=== PATIENT | male | born 1955 | race Hispanic/Latino ===

== ENCOUNTER → 2016-05-17 | Outpatient (CLI) | payer OTHER, MEDICARE ==
[~2016-05-17] MED LIST: /DULO30CA PO; /LANS30GR PO; /TAMS4CA OR; ACET50TA PO; ALBU17IN INH; AMBI5TAB; AMLO5TAB; AMLO5TAB PO; AMLO5TAB2 PO; ASPI1TAB PO; ASPI81TA63 PO; AVAP150T; BENI20TA5 PO; BUPR15TA; CARV25TA PO; CEPACOL PO; CHLO125TA PO; CHLO25TA3 PO; CIAL20TA; COZA100T; COZA100T OR; CRES20TA OR; CRES20TA PO; CRES40TA PO; DRIS50002 PO; FLOM5CAP PO; FLON0.05; FLON0.054; FLUTISP; GABA300T; GABA600T PO; GABA600T3 OR; GLUC1000 PO; GLUC500T PO; HYDR-3565 PO; HYDR200T3 PO; HYDR25TA6; HYDR25TA6 OR; HYPROMELLOSE OU; LACT20EL PO; LOVAZA PO; LOVE0.8I SC; LYRI150C OR; MIRA0.753 PO; Mirapex PO; NATUSOL OU; NITR0.3S SL; NITR3TA SL; OXYC30TA4 PO; OXYC5CAP28 PO; OXYCO5TA PO; PERC10TA17 PO; PERC7.5T12 PO; PLAV75TA2 PO; POTA1TAB14 PO; POTA20TA OR; PREV30CA11 PO; Pain Cream TOP; QUAR INH; QVAR80AE7 INH; REFR1DRO6 OU; REQU2TAB3 OR; RYZOLT PO; TAMS0.4C2 PO; THERGRAN PO; TIZA4TAB OR; TOPA100T8 PO; TOPA25TA10 PO; TOPI50TA4 PO; TOPR100T; TOPR50TA; TRAM50TA2 OR; TRIL135C PO; Trilipix PO; VICO10TA11 PO; VICO5TA PO; VICO5TAB OR; VITAMIN D50000 UNT PO; VOLT1GEL2 TD; VYTO10TA5; Ventolin INH; XANA0.5T PO; XARE20TA PO; ZETI10TA2 PO; ZOLO100T PO; ZOLO50TA OR; [UNRECOGNIZED DRUG - OTHER]; plaquenil PO; tylenol#3 PO
[2016-05-17 17:30] LABS: MEAN CORPUSCULAR HEMOGLOBIN 29.7 pg (27.0-33.0); RED CELL DISTRIBUTION WIDTH 13.7 % (11.5-14.5); RETIC HEMOGLOBIN CONTENT CHr 31.3 PG (24-36); RETICULOCYTE % ADVIA2120 2.7 % (0.5-1.5); WHITE BLOOD COUNT 5.9 K/mm3 (4.0-10.0)
[2016-05-17 17:34] LABS: FOLATE 10.6 NG/ML (>5.4); VITAMIN B12 LEVEL 476 PG/ML (247-911)
[2016-05-17 17:37] LABS: ALBUMIN 4.1 GM/DL (3.2-5.2); ALBUMIN/GLOBULIN RATIO 1.24 (1.00-1.93); ALKALINE PHOSPHATASE 67 U/L (45-117); ALT/SGPT 45 U/L (12-78); ANION GAP 10 MEQ/L (8-16); AST/SGOT 21 U/L (15-37); BILIRUBIN,DIRECT 0.1 MG/DL (0.0-0.2); BILIRUBIN,TOTAL 0.3 MG/DL (0.2-1.0); BLOOD UREA NITROGEN 28 MG/DL (7-18); CALCIUM LEVEL 9.4 MG/DL (8.8-10.2); CARBON DIOXIDE LEVEL 26 MEQ/L (21-32); CHLORIDE LEVEL 109 MEQ/L (98-107); CHOLESTEROL LEVEL 166 MG/DL (<200); CREATININE FOR GFR 1.18 MG/DL (0.70-1.30); FERRITIN 81 NG/ML (26-388); GLOMERULAR FILTRATION RATE > 60.0 (>49); GLUCOSE, FASTING 116 MG/DL (80-110); PERCENT SATURATION 28.8 % (19.7-37.4); POTASSIUM SERUM 3.6 MEQ/L (3.5-5.1); SODIUM LEVEL 145 MEQ/L (136-145); TOTAL IRON BINDING CAPACITY 351 UG/DL (250-450); TOTAL PROTEIN 7.4 GM/DL (6.4-8.2); TRIGLYCERIDES LEVEL 196 MG/DL (<150)
== END ==
LOC: M LRY 10:27
PROVIDERS: ATTEND Family Medicine
DX: E78.4 Other hyperlipidemia (principal); N18.3 Chronic kidney disease, stage 3 (moderate); E55.9 Vitamin D deficiency, unspecified; D64.9 Anemia, unspecified

== ENCOUNTER → 2016-06-03 | Outpatient (CLI) | payer OTHER ==
[~2016-06-03] MED LIST changes: -HYDR-3565 PO; +HYDR-3719 PO; +OXYC-517 PO; -OXYCO5TA PO
== END ==
LOC: M SMT 10:44
PROVIDERS: ATTEND Urology
DX: D40.0 Neoplasm of uncertain behavior of prostate (principal)
CPT/HCPCS: 36415; 84153; G0463

== ENCOUNTER → 2016-06-15 | Outpatient (CLI) | payer OTHER ==
--- NOTE | 2016-06-15 11:02 | REP ---
Prostate sonography: History: Elevated PSA. Sonographic findings: Trans rectal prostate sonography demonstrates unremarkable seminal vesicles. Prostate gland is heterogeneously enlarged with calcifications and cystic changes noted. Glandular dimensions are measured at 5.3 x 4.3 x 5.4 cm with a calculated glandular volume of 64.4 ml. There is a 0.8 cm nodule in the left side of the prostate . Transrectal sonographic guidance provided to Dr. Slade who performed trans rectal ultrasound guided needle biopsy procedure . Signed by Kevin Bolaños MD 06/15/2016 10:53 A
== END | disposition home or self-care (01) ==
LOC: M SMT PRO 08:25
PROVIDERS: ATTEND Urology
DX: C61 Malignant neoplasm of prostate (principal); R97.20 Elevated prostate specific antigen [PSA]
CPT/HCPCS: 55700; 76872; 76942; G0416

== ENCOUNTER → 2016-06-17 | Outpatient (CLI) | payer OTHER, MEDICARE | LOC: M PAIN 09:40 | PROVIDERS: ATTEND Nurse Practitioner Family | DX: Z09 Encounter for follow-up examination after completed treatment for conditions other than malignant neoplasm (principal); G89.29 Other chronic pain; M46.08 Spinal enthesopathy, sacral and sacrococcygeal region; M12.88 Other specific arthropathies, not elsewhere classified, other specified site; I10 Essential (primary) hypertension; G47.30 Sleep apnea, unspecified; I25.10 Atherosclerotic heart disease of native coronary artery without angina pectoris; E78.5 Hyperlipidemia, unspecified; K30 Functional dyspepsia; F32.9 Major depressive disorder, single episode, unspecified; E55.9 Vitamin D deficiency, unspecified; D68.61 Antiphospholipid syndrome; Z88.1 Allergy status to other antibiotic agents; Z88.8 Allergy status to other drugs, medicaments and biological substances; Z79.01 Long term (current) use of anticoagulants; Z79.82 Long term (current) use of aspirin; Z79.84 Long term (current) use of oral hypoglycemic drugs; Z79.891 Long term (current) use of opiate analgesic; Z79.899 Other long term (current) drug therapy ==

== ENCOUNTER → 2016-07-02 | Outpatient (REF) | payer OTHER, MEDICARE | LOC: M LABNEURO 13:08 | PROVIDERS: ATTEND Family Medicine | DX: E55.9 Vitamin D deficiency, unspecified (principal) ==

== ENCOUNTER → 2016-07-09 | Outpatient (CLI) | payer OTHER, MEDICARE ==
[~2016-07-09] MED LIST changes: +BENI40TA3 PO; +BUPIVACAINE HCL 0.25% 30 ML VIAL As Ordered ONE; +FLON1SPR; +FLUT11IN INH; +ISOVUE-M 300 61% 15ML VIAL (Q9967) As Ordered ONE; +LIDOCAINE 1% SDV INJ 30 ML VIAL As Ordered ONE; +LOVA1CAP17 PO; +PROA1AER INH; +TRIAMCINOLONE ACETONIDE SUSP 40 MG/ML VIAL (J3301) As Ordered ONE; +[UNRECOGNIZED DRUG - CODE] OU; +diazePAM 5 MG TAB As Ordered ONE; +oxyCODONE 5MG TAB As Ordered ONE
--- NOTE | 2016-07-09 15:04 | REP ---
Partial sacral coccygeal study: Three views. History: Bilateral sacral coccygeal ligament injection for pain. 24 seconds of fluoroscopy time is reported. Findings: A sequence of three fluoroscopically obtained last image hold spot radiographs document needle position and contrast injection associated with injection procedure. Signed by Kevin Bolaños MD 07/09/2016 04:47 P
--- NOTE | 2016-07-15 00:47 | ECWPNPC ---
PATIENT NAME: DALTON WYNN : 1955 GENDER: MALE VISIT DATE: 07/09/2016 DISCHARGE DATE: 07/09/16 1404 VISIT LOCKED DATE TIME: PHYSICIAN: PRO HIGGINS RESOURCE: PRO HIGGINS REASON FOR APPOINTMENT 1. SACRAL COCCYGEAL LIGAMENT INJECTION HISTORY OF PRESENT ILLNESS HISTORY OF PRESENT ILLNESS: PAIN THE PATIENT DESCRIBES THE PAIN... FALL RISK SCREENING: SCREENING :NO FALLS IN THE PAST YEAR CURRENT MEDICATIONS TAKING OXYCODONE HCL 5 MG TABLET 1 TABLET ORALLY Q10H PRN FOR PAIN MDD2, NOTES: 07-08-162099 TAKING ASPIR-81 81 MG TABLET DELAYED RELEASE 1 TABLET ORALLY ONCE A DAY, NOTES: 07-08-16 AM TAKING CHLORTHALIDONE 12.5 12.5MG TABLET 1TAB ORAL DAILY, NOTES: 07-09-16699 TAKING CRESTOR 40 MG TABLET 1 TABLET ORALLY ONCE A DAY, NOTES: 07-08-162099 TAKING FLONASE 50 MCG/ACT SUSPENSION 2 SPRAYS IN EACH NOSTRIL NASALLY ONCE A DAY, NOTES: 2 DAYS TAKING GABAPENTIN 600 MG TABLET 1 TABLET ORALLY THREE TIMES A DAY, NOTES: 07-09-16699 TAKING GLUCOPHAGE 500 MG TABLET 1 TABLET WITH MEALS ORALLY ONCE A DAY, NOTES: 07-08-16 AM TAKING KLOR-CON M20 20 MEQ TABLET EXTENDED RELEASE 1 TABLET ORALLY DAILY, NOTES: 07-08-16 TAKING MIRAPEX 0.75 MG TABLET 1 TABLET BEFORE BEDTIME ORALLY BID, NOTES: 07-08-161799 TAKING NITROGLYCERIN 0.3 MG TABLET SUBLINGUAL 1 TABLET UNDER THE TONGUE AND ALLOW TO DISSOLVE NEEDED SUBLINGUAL EVERY 0 HRS, NOTES: NONE NEEDED TAKING PREVACID 30 MG CAPSULE DELAYED RELEASE 1 CAPSULE BEFORE A MEAL ORALLY BID, NOTES: 07-08-16699 TAKING VITAMIN D2 58409 UNITS TABLET 1TAB ORALLY EVERY 2 WEEKS, NOTES: WEEK AGO TAKING FLOMAX 0.4 MG CAPSULE 1 CAPSULE 30 MINUTES AFTER THE SAME MEAL EACH DAY ORALLY ONCE A DAY, NOTES: 07-08-161199 TAKING BENICAR 40 MG TABLET 1 TAB ORALLY ONCE DAILY, NOTES: 07-08-162099 TAKING TOPAMAX 100 MG TABLET 1 TABLET ORALLY TWICE A DAY, NOTES: 699 TAKING HYPROMELLOSE 0.4 % SOLUTION 1 DROP INTO AFFECTED EYE NEEDED OPHTHALMIC ONCE A DAY, NOTES: COUPLE DAYS TAKING XARELTO 20 MG TABLET 1 TABLET WITH FOOD ORALLY ONCE DAILY, NOTES: 06-25-16 TAKING ZETIA 10 MG TABLET 1 TABLET ORALLY ONCE A DAY, NOTES: 07-08-162099 TAKING PROAIR HFA 108 (90 BASE) MCG/ACT AEROSOL SOLUTION 2 PUFFS NEEDED INHALATION EVERY 4 HRS, NOTES: 07-09-16699 TAKING FLOVENT HFA 110 MCG/ACT AEROSOL 2 PUFFS INHALATION TWICE A DAY, NOTES: COUPLE DAYS TAKING SERTRALINE HCL 100 MG TABLET 1 TABLET ORALLY ONCE A DAY, NOTES: 07-08-16699 TAKING COREG 25 MG TABLET ORALLY TWICE DAILY, NOTES: 07-08-16699 TAKING LOVENOX 40 MG/0.4ML SOLUTION 0.4 ML SUBCUTANEOUS ONCE A DAY BRIDGE, NOTES: 07-08-16899 TAKING LIDOCAINE 5% (140 MG) PATCH EXTERNALLY TWICE DAILY NEEDED, NOTES: NONE TAKING LOVAZA 1 GM CAPSULE 1 CAP ORALLY TWICE A DAY, NOTES: 07-08-162099 DISCONTINUED CIPROFLOXACIN HCL 500 MG TABLET 1 TABLET (START TAKING THE EVENING PRIOR TO YOUR PROSTATE BIOPSY) ORALLY EVERY 12 HRS DISCONTINUED TRILIPIX 200 MG CAPSULE DELAYED RELEASE 1 CAPSULE ORALLY ONCE A DAY DISCONTINUED IRON 325 (65 FE) MG TABLET 1 TABLET ORALLY BID DISCONTINUED LANSOPRAZOLE 30 MG CAPSULE DELAYED RELEASE 1 CAPSULE ORALLY ONCE A DAY DISCONTINUED METFORMIN HCL 500 MG TABLET 1 TABLET WITH MEALS ORALLY ONCE A DAY DISCONTINUED FISH OIL 1000 MG CAPSULE 2 CAPSULES ORALLY ONCE A DAY DISCONTINUED VITAMIN C 500 MG TABLET CHEWABLE 1 TABLET ORALLY ONCE A DAY MEDICATION LIST REVIEWED AND RECONCILED WITH THE PATIENT PAST MEDICAL HISTORY HYPERTENSION SLEEP APNEA CAD HYPERLIPIDEMIA ARTHRALGIA DIVERTICULOSIS ERECTILE DYSFUNCTION DIABETIC NEUROPATHY DYSPEPSIA DIABETES MELLITUS DEPRESSION BPH ESOPHAGEAL REFLUX VITAMIN D DEFICIENCY WHEEZING ANTIPHOSPHOLID ANTIBODY SYNDROME ALLERGIES ERYTHROMYCIN: HIVES: ALLERGY ALTACE: COUGH: SIDE EFFECTS ABILIFY: SEVERE HEADACHES: SIDE EFFECTS NEXIUM: NAUSEA/VOMITING: CONTRAINDICATION OXYTETRACYCLINE HCL: MOUTH SORES: ALLERGY SOCIAL HISTORY GENERAL: TOBACCO USE ARE YOU A:NONSMOKER LEARNING BARRIERS / SPECIAL NEEDS ORIENTED TO PLAN OF CARE: PATIENT, PAIN MANAGEMENT PATIENT, ORIENTED TO PLAN OF CARE: PATIENT, PAIN MANAGEMENT PATIENT. NEW PATIENT PAIN DIARY TODAY'S VISITNOTES FROM 0-10, WHAT LEVEL IS YOUR PAIN TODAY?0 PAIN CLINIC PFS, CLERGY, PUBLIC HEALTH REFERRALS PFS REFERRAL NEEDED?NO CLERGY REFERRAL NEEDED?NO PUBLIC HEALTH REFERRAL NEEDED?NO WAS THE PROVIDER NOTIFIED OF ANY PERTINENT INFO?NO PFS REFERRAL NEEDED?NO CLERGY REFERRAL NEEDED?NO PUBLIC HEALTH REFERRAL NEEDED?NO WAS THE PROVIDER NOTIFIED OF ANY PERTINENT INFO?NO REVIEW OF SYSTEMS CONSTITUTIONAL: ANY CHANGE IN YOUR MEDICAL CONDITION? YES, PROTATE CANCER . CHILLS NO . FEVER NO . INFECTION: DO YOU HAVE NEW INFECTIONS? NO . DO YOU HAVE HISTORY OF MRSA? NO . MUSCULOSKELETAL: ANY NEW PATTERNS OF PAIN OR NUMBNESS? YES, LOWER BACK HURTING MUCH MORE. . GASTROENTEROLOGY: ANY NEW CHANGE IN BOWEL CONTROL? NO . GENITOURINARY: ANY NEW CHANGE IN BLADDER CONTROL? NO . IS THERE A CHANCE YOU COULD BE ? NO . HEMATOLOGY/LYMPH: DO YOU TAKE ANY BLOOD THINNERS? (FOR EXAMPLE- COUMADIN, PLAVIX, AGGRENOX, PLATEL, PRADAXA, OR XARELTO) YES, XARELTO . WHEN WAS YOUR LAST DOSE? DATE: TIME: 07-05-16699 . NEUROLOGY: HAVE YOU FALLEN IN THE PAST 6 MONTHS? NO . ANY NEW EXTREMITY NUMBNESS OR WEAKNESS? NO . CARDIOLOGY: DO YOU HAVE A PACEMAKER OR DEFIBRILLATOR? NO . RESPIRATORY: HAVE YOU BEEN SICK IN THE PAST WEEK? NO . FEVER NO . FLU LIKE SYMPTOMS? NO . COUGH NO . INTEGUMENTARY: DO YOU HAVE ANY RASHES OR OPEN SORES? NO . ALLERGIC/IMMUNO: ARE YOU ALLERGIC TO SHELLFISH OR IV DYE? NO . ANY NEW ALLERGIES? NO . PSYCHIATRIC: DO YOU HAVE THOUGHTS OF HURTING YOURSELF OR SOMEONE ELSE? NO . ARE YOU ABUSED, NEGLECTED, OR IN AN UNSAFE ENVIRONMENT? NO . ENDOCRINOLOGY: ARE YOU DIABETIC? YES . OTHER: DO YOU NEED ANY PRESCRIPTIONS? NO . IF YES, PLEASE LIST: ____ . ANY NEW PROBLEMS WITH YOUR MEDICATIONS? NO . WHEN DID YOU LAST EAT? 07-08-162199 . WHEN DID YOU LAST DRINK? 07-09-16 0700 . WHAT DID YOU LAST DRINK? WATER . NAME OF PERSON DRIVING YOU HOME? GUY . DO YOU HAVE ANY OTHER QUESTIONS OR CONCERNS NO . REVIEWED BY: PROVIDER: . VITAL SIGNS WT 220 LBS, HT 68 IN, BMI 33.45 INDEX, BP 122/59 MM HG, HR 68 /MIN, RR 16 /MIN, TEMP 96.7 F, OXYGEN SAT % 92%, NA INITIALS SC 11:12, REVIEWED BY: CM. ASSESSMENTS SPINAL ENTHESOPATHY, SACRAL AND SACROCOCCYGEAL REGION - M46.08 (PRIMARY) PROCEDURES PREPROCEDURE DIAGNOSIS:INFLAMMATION OF THE SACROCOCCYGEAL LIGAMENT. COCCYDYNIA.POSTPROCEDURE DIAGNOSIS:INFLAMMATION OF THE SACROCOCCYGEAL LIGAMENT. COCCYDYNIA.PROCEDURE: INJECTION OF THE RIGHT AND LEFT SACROCOCCYGEAL LIGAMENT. SURGEON: DR. PRO HIGGINS-[facility]ENTERANESTHESIA: LOCAL.PREOPERATIVE NOTE: THE PATIENT HAS HISTORY OF LOW BACK PAIN. I EVALUATED THE PATIENT AND REVIEWED THE CHART. WE BOTH AGREE ON INJECTING OVER THE SACROCOCCYGEAL LIGAMENT. THE PATIENT IS AWARE OF THE POTENTIAL COMPLICATIONS WHICH INCLUDE INFECTIONS, VISCERAL PUNCTURE, INCLUDING RECTAL PUNCTURE AMONG OTHERS. I DISCUSSED ALTERNATIVES AND THE PATIENT EXPRESSED THAT SHE WOULD LIKE TO MOVE FORWARD. THE PATIENT DENIES UNEXPLAINABLE, WEIGHT LOSS, FEVER, CHILLS, OR CHANGES IN URINARY OR BOWEL CONTROL. DESCRIPTION OF PROCEDURE: AFTER CONSENT WAS TAKEN, THE PATIENT WAS BROUGHT TO THE PROCEDURE ROOM AND PLACED IN THE PRONE POSITION. THE LUMBOSACRAL AREA WAS CLEANED WITH CHLORAPREP SOLUTION AND DRAPED ASEPTICALLY. THE PROCEDURE WAS DONE UNDER STERILE CONDITIONS. UNDER FLUOROSCOPIC GUIDANCE, THE TARGET WAS SELECTED AT THE RIGHT AND LEFT SACROCOCCYGEAL LIGAMENT. LIDOCAINE WAS USED TO NUMB THE SKIN AND THE SUBCUTANEOUS TISSUE BELOW IT. A 25 NEEDLE WAS ADVANCED UNTIL WE REACHED THE RIGHT AND LEFT SACROCOCCYGEAL LIGAMENT. I DID AP AND LATERAL VIEWS. ISOVUE M DYE 30%, 1/4 ML, WAS INJECTED SHOWING ADEQUATE SPREAD OF THE DYE. THEN A SOLUTION OF 30 ML OF BUPIVACAINE 0.125% WITH KENALOG 30 MG WAS INJECTED OVER THE AFFECTED STRUCTURE. THERE WAS NO EVIDENCE OF BLOOD, PARESTHESIA OR CEREBROSPINAL FLUID. NO EVIDENCE OF VACUUM PHENOMENON OR VISCERAL PUNCTURE. THE PATIENT WAS SENT TO THE RECOVERY ROOM WHERE SHE WAS MOVING HER EXTREMITIES AND DOING WELL. THERE WERE NO COMPLICATIONS DURING THE PROCEDURE. FLUOROSCOPY TIME WAS 12 SECONDS.POSTOPERATIVE NOTE: I DISCUSSED ALTERNATIVES WITH THE PATIENT. I AM LOOKING FOR LONG LASTING PAIN RELIEF WITH THIS INTERVENTION. INSTRUCTIONS WERE GIVEN. QUESTIONS WERE ANSWERED. THE PATIENT REPORTS UNDERSTANDING AND AGREES WITH THE PLAN. THERE WERE NO COMPLICATIONS DURING THE PROCEDURE. INSTRUCTIONS WERE GIVEN, QUESTIONS WERE ANSWERED, PATIENT REPORTS UNDERSTANDING AND AGREES WITH THE PLAN. I, MOISES NAVARRETE, DOCUMENTED THE ABOVE INFORMATION ACTING A SCRIBE FOR DR. HIGGINS. I HAVE REVIEWED THE ABOVE DOCUMENT, WRITTEN BY MOISES MUNOZ AND I VERIFY THAT IT IS ACCURATE. DIAGNOSTIC IMAGING [facility] FLUORO GUIDANCE (PAIN)[id number] PROCEDURE CODES 47467 INJ TENDON SHEATH/LIGAMENT 85022 FLUOROGUIDE FOR SPINE INJECT 6045F RADXPS IN END [id number] PXD DISPOSITION & COMMUNICATION FOLLOW UP 3 WEEKS ELECTRONICALLY SIGNED BY PRO HIGGINS MD ON 07/14/2016 AT 06:39 AM EST DISCLAIMER : THIS IS A VISIT SUMMARY EXTRACTED FROM THE [facility] CHART. IT IS NOT A COPY OF THE [facility] PROGRESS NOTE. IRASEMA
== END ==
LOC: M PAIN 11:10
PROVIDERS: ATTEND Anesthesiology
DX: G89.29 Other chronic pain (principal); M46.08 Spinal enthesopathy, sacral and sacrococcygeal region; M53.3 Sacrococcygeal disorders, not elsewhere classified; I10 Essential (primary) hypertension; G47.30 Sleep apnea, unspecified; I25.10 Atherosclerotic heart disease of native coronary artery without angina pectoris; E78.5 Hyperlipidemia, unspecified; E11.9 Type 2 diabetes mellitus without complications; K30 Functional dyspepsia; F32.9 Major depressive disorder, single episode, unspecified; K21.9 Gastro-esophageal reflux disease without esophagitis; E55.9 Vitamin D deficiency, unspecified; D68.61 Antiphospholipid syndrome; Z88.1 Allergy status to other antibiotic agents; Z88.8 Allergy status to other drugs, medicaments and biological substances; Z79.891 Long term (current) use of opiate analgesic; Z79.82 Long term (current) use of aspirin; Z79.84 Long term (current) use of oral hypoglycemic drugs; Z79.899 Other long term (current) drug therapy
CPT/HCPCS: 20550; 77002; J3301; Q9967

== ENCOUNTER → 2016-07-14 | Outpatient (REF) | payer OTHER, MEDICARE ==
[~2016-07-14] MED LIST changes: -BENI40TA3 PO; -BUPIVACAINE HCL 0.25% 30 ML VIAL As Ordered ONE; -FLON1SPR; -FLUT11IN INH; -ISOVUE-M 300 61% 15ML VIAL (Q9967) As Ordered ONE; -LIDOCAINE 1% SDV INJ 30 ML VIAL As Ordered ONE; -LOVA1CAP17 PO; -PROA1AER INH; -TRIAMCINOLONE ACETONIDE SUSP 40 MG/ML VIAL (J3301) As Ordered ONE; -[UNRECOGNIZED DRUG - CODE] OU; -diazePAM 5 MG TAB As Ordered ONE; -oxyCODONE 5MG TAB As Ordered ONE
== END ==
LOC: M SMT 16:54
PROVIDERS: ATTEND Urology
DX: Z01.812 Encounter for preprocedural laboratory examination (principal); C61 Malignant neoplasm of prostate

== ENCOUNTER → 2016-07-15 | Outpatient (CLI) | payer OTHER ==
[~2016-07-15] MED LIST changes: +BENI40TA3 PO; +FLON1SPR; +FLUT11IN INH; +LOVA1CAP17 PO; +PROA1AER INH; +[UNRECOGNIZED DRUG - CODE] OU
--- NOTE | 2016-07-15 09:47 | REP ---
CHEST, TWO VIEWS: HISTORY: Prostate cancer. COMPARISON: 03/24/2016. Calcified granuloma are present in the lungs. The heart is normal in size. The pulmonary vasculature is normal in appearance. The patient is status post resection of the distal right clavicle. IMPRESSION: Old granulomatous disease. Signed by Blas Ziegler MD 07/15/2016 10:16 A
[2016-07-15 13:32] LABS: MEAN CORPUSCULAR HEMOGLOBIN 29.3 pg (27.0-33.0); MEAN CORPUSCULAR VOLUME 88.9 fl (80.0-96.0); RED CELL DISTRIBUTION WIDTH 13.1 % (11.5-14.5); WHITE BLOOD COUNT 6.6 K/mm3 (4.0-10.0)
[2016-07-15 13:37] LABS: INR 1.16
[2016-07-15 14:04] LABS: ALBUMIN 3.9 GM/DL (3.2-5.2); ALBUMIN/GLOBULIN RATIO 1.22 (1.00-1.93); ALKALINE PHOSPHATASE 88 U/L (45-117); ALT/SGPT 38 U/L (12-78); ANION GAP 9 MEQ/L (8-16); AST/SGOT 19 U/L (15-37); BILIRUBIN,TOTAL 0.2 MG/DL (0.2-1.0); BLOOD UREA NITROGEN 25 MG/DL (7-18); CALCIUM LEVEL 9.5 MG/DL (8.8-10.2); CARBON DIOXIDE LEVEL 24 MEQ/L (21-32); CHLORIDE LEVEL 110 MEQ/L (98-107); GLOMERULAR FILTRATION RATE > 60.0 (>49); GLUCOSE, FASTING 164 MG/DL (80-110); POTASSIUM SERUM 3.9 MEQ/L (3.5-5.1); SODIUM LEVEL 143 MEQ/L (136-145); TOTAL PROTEIN 7.1 GM/DL (6.4-8.2)
== END ==
LOC: M SMT 08:31
PROVIDERS: ATTEND Urology
DX: C61 Malignant neoplasm of prostate (principal)

== ENCOUNTER 2016-07-23 06:00 | Inpatient (IN) | payer OTHER ==
[~2016-07-23] VITALS: Ht 172.7 cm; Wt 100.0 kg
[2016-07-23] MEDS ORDERED: LR 1,000 ML IV SCH ×2 (06:15→14:15)
[2016-07-23] MEDS ORDERED: METHYLENE BLUE 0.5% (5MG/ML) 10 ML AMP (PROVAYBLUE)(Q9968 PER 1MG) As Ordered ONE (06:46)
[2016-07-23] MEDS ORDERED: LIDOCAINE 1% SDV INJ 30 ML VIAL As Ordered ONE (06:47)
[2016-07-23] MEDS ORDERED: BUPIVACAINE HCL 0.25% 30 ML VIAL As Ordered ONE (06:47)
[2016-07-23] MEDS ORDERED: ACETAMINOPHEN TAB 650MG DOSE (2X325MG) PO PRN (07:45)
[2016-07-23] MEDS ORDERED: ALBUTEROL 90 MCG/ACT 8GM HFA INHALER INH PRN (07:45)
[2016-07-23] MEDS ORDERED: ONDANSETRON 4MG/2ML VIAL (J2405) IV PRN ×2 (07:45→14:15)
[2016-07-23] MEDS ORDERED: HEPARIN SOD (PORCINE) 5000 UNITS/ML VIAL As Ordered ONE (07:49)
[2016-07-23] MEDS ORDERED: ONDANSETRON 4MG/2ML VIAL (J2405) As Ordered ONE (08:07)
[2016-07-23] MEDS ORDERED: LIDOCAINE 2% INJ 100 MG/5 ML SDV (FOR ANES.) As Ordered ONE (08:07)
[2016-07-23] MEDS ORDERED: METOCLOPRAMIDE INJ 10MG/2ML VIAL (J2765) As Ordered ONE (08:07)
[2016-07-23] MEDS ORDERED: fentaNYL 250 MCG/5 ML INJECTION (J3010) As Ordered ONE (08:07)
[2016-07-23] MEDS ORDERED: GLYCOPYRROLATE INJ 0.2 MG/ML 2 ML VIAL As Ordered ONE ×3 (08:07→08:43)
[2016-07-23] MEDS ORDERED: PROPOFOL 200 MG/20 ML VIAL As Ordered ONE (08:07)
[2016-07-23] MEDS ORDERED: NEOSTIGMINE 1MG/ML 5 ML SYRINGE (J2710) As Ordered ONE (08:07)
[2016-07-23] MEDS ORDERED: LIDOCAINE 2% JELLY 30 ML As Ordered ONE (08:07)
[2016-07-23] MEDS ORDERED: ePHEDrine SULFATE 25 MG/5 ML(5MG/ML) SYRINGE As Ordered ONE ×2 (08:07→10:59)
[2016-07-23] MEDS ORDERED: ROCURONIUM BROMIDE 50 MG/5 ML VIAL As Ordered ONE (08:07)
[2016-07-23] MEDS ORDERED: MIDAZOLAM INJ 2 MG/2 ML VIAL (J2250) As Ordered ONE (08:07)
[2016-07-23] MEDS ORDERED: HYDROmorphone HCL 2 MG/ML 1ML VIAL (J1170) As Ordered ONE (08:07)
[2016-07-23] MEDS ORDERED: DESFLURANE 240 ML INHALANT As Ordered ONE ×2 (08:10→12:28)
--- NOTE | 2016-07-23 13:33 | ROOPDOC ---
[facility] Report Of Operation Report of Operation DATE OF PROCEDURE: 07/23/2016 PREPROCEDURE DIAGNOSIS: Prostate cancer. POSTPROCEDURE DIAGNOSIS: Prostate cancer. PROCEDURE: Robotic-assisted laparoscopic radical prostatectomy. SURGEON: Chelsi Gamboa MD MEDICAL DONATION PROFESSIONAL: Zehra Delcid NP ANESTHESIA: General. OPERATIVE INDICATIONS: This is a 61-year-old male who was diagnosed with clinical stage T1c Toshia 3+3 prostate cancer. After a discussion of the different options for treatment, he elected to undergo the above listed procedure. DESCRIPTION OF PROCEDURE: The patient was brought to the operating room where general anesthesia was induced. Prophylactic antibiotics were infused. He was then placed in the dorsal lithotomy position, and prepped and draped in the usual sterile fashion. Next, a Glass catheter was inserted into the bladder, and the balloon was filled with 10 mL of sterile water. We then made a midline incision above the umbilicus for 12 mm port. A Veress needle was utilized to achieve pneumoperitoneum. Next, a 12 mm port was inserted through the incision and subsequently the camera was inserted. There were no injuries from the Veress needle or initial trocar placement. The remaining ports were placed in the usual fashion under direct vision in a W configuration. There were three 8 mm robotic ports, as well as another 12 mm pizza hut assistant port. Once all the ports were placed, the robot was docked. After the robot was docked, we then proceeded to release any adhesions to the sigmoid colon and the abdominal wall. Once that was done, the bladder was dropped and the fat overlying the prostate was cleared using electrocautery. The superficial dorsal vein was controlled with electrocautery. The endopelvic fascia was opened on both sides and the dorsal venous complex was cleared. Next, a #0 Vicryl [id number] stitch was placed around the dorsal venous complex. Once that was done, the bladder was opened. We then began dissecting the bladder neck away from the prostate. I continued to dissect the bladder away from the prostate and then the prostate was lifted up. Both vasa differentia were identified in the midline. They were both carefully dissected and then ligated with Weck clips and then transected. Both seminal vessels were then also dissected until the entire seminal vesicle on each side was lifted up. At this point, bilateral prostatic pedicles were carefully ligated using a Harmonic scalpel. Of note, I did not perform a nerve sparing procedure for this patient as he indicated preop that preserving erections was not a priority for him. Bilateral pedicles were carried towards the apex. After taking care of the pedicles and mobilizing the rectum off the prostate below, the prostate was only connected by the urethra. At this point, the dorsal vein was transected with electrocautery. The urethra was then opened and the catheter was withdrawn and the posterior urethra was transected, thus freeing the prostate. At this point, we checked for hemostasis and it did appear very good. Once hemostasis was confirmed, I then moved on to the vesicourethral anastomosis. This was performed with a Quill stitch in a running fashion. Once this was done, the final #20-Irish Glass catheter was placed. Once the final Glass was placed, the balloon was filled with 15 mL of sterile water. Upon completion of the vesicourethral anastomosis, it was tested by filling the bladder with 120 mL of sterile water. The vesicourethral anastomosis appeared to be watertight. At this point, the prostate and seminal vesicles were placed in an Endo Catch bag for future retrieval. The robot was then undocked. A Pineda fascial closure device was utilized to place a #0 Vicryl suture through the fascia of the 12 mm pizza hut assistant port. At this point, a Dipak- Mendez drain was brought in through the left robotic port skin site and the drain was positioned anterior to the bladder. The drain was secured to the skin with #3-0 Ethilon suture. Next, all the remaining ports were removed and there did not appear to be any bleeding from any of the port sites. The prostate was then extracted from the 12 mm camera port site after the skin and fascia were extended. The fascia in this area was then closed with a running #0 Vicryl stitch. The previously placed #0 Vicryl free ties through the pizza hut assistant port were then tied down and all incisions were irrigated. Lastly, all of the incisions were closed with running subcuticular #4-0 Monocryl sutures. Local anesthesia was applied. Dermabond was then applied to the incisions. This marked the conclusion of the procedure. The patient was then taken out of the dorsal lithotomy position, awakened from anesthesia and transported to the recovery room in stable condition. ESTIMATED BLOOD LOSS: 300 mL. COMPLICATIONS: None. SPECIMENS: Prostate. PLAN: The patient will be admitted to the hospital postoperatively, and he will likely be discharged home within the next 1-2 days. His catheter will be removed in the next 7-10 days. CHELSI GAMBOA MD Jul 23, 2016 13:33
[2016-07-23 13:56] LABS: MEAN CORPUSCULAR HEMOGLOBIN 29.4 pg (27.0-33.0); MEAN CORPUSCULAR HGB CONC 32.3 g/dl (32.0-36.5); RED CELL DISTRIBUTION WIDTH 13.3 % (11.5-14.5); WHITE BLOOD COUNT 10.4 K/mm3 (4.0-10.0)
[2016-07-23] MEDS ORDERED: fentaNYL 100 MCG/2 ML INJECTION (J3010) IV PRN (14:15)
[2016-07-23 14:23] LABS: CALCIUM LEVEL 8.4 MG/DL (8.8-10.2); CREATININE FOR GFR 1.36 MG/DL (0.70-1.30); GLOMERULAR FILTRATION RATE 56.7 (>49)
[2016-07-23 15:00] VITALS: BP 133/63
[2016-07-23] MEDS: NS 1,000 ML IV SCH ×3 (15:16→23:31)
[2016-07-23] MEDS: PERCOCET 5MG/325MG TAB PO PRN ×2 (15:17→21:46)
[2016-07-23 15:30] VITALS: BP 155/73
[2016-07-23] MEDS: ENOXAPARIN 40 MG/0.4 ML SYRINGE (J1650) SC SCH (15:44)
[2016-07-23] MEDS: GABAPENTIN 300 MG CAP PO SCH ×2 (15:45→20:33)
[2016-07-23] MEDS: FLUTICASONE PROP 0.05% NASAL SPRAY 16 GM (FLONASE) SCH (15:53)
[2016-07-23] MEDS: PRAMIPEXOLE 0.25 MG TAB PO SCH ×2 (15:53→20:34)
[2016-07-23] MEDS: DOCUSATE SODIUM 100 MG CAP PO SCH ×2 (15:53→20:34)
[2016-07-23] MEDS: ceFAZolin SOD 1 GM in D5W MINI-BAG PLUS 50 ML IV SCH ×2 (15:54→23:31)
[2016-07-23 16:30] VITALS: BP 135/65
[2016-07-23 17:30] VITALS: BP 127/59
[2016-07-23] MEDS: MORPHINE 2 MG/ML 1ML SYRINGE IV PRN ×2 (17:55→20:29)
[2016-07-23 18:30] VITALS: BP 128/60
[2016-07-23] MEDS: CARVedilol 12.5 MG TAB PO SCH (20:32)
[2016-07-23] MEDS: ROSUVASTATIN 10 MG TAB (CRESTOR) PO SCH (20:33)
[2016-07-23] MEDS: TOPIRAMATE (TopAMAX) 100 MG TAB PO SCH (20:33)
[2016-07-23] MEDS: PANTOPRAZOLE 40MG TAB (PROTONIX) PO SCH (20:34)
[2016-07-23] MEDS: FLUTICASONE HFA 110 MCG 12 GM INHALER (FLOVENT) INH SCH (20:54)
[2016-07-23] MEDS ORDERED: LANSOPRAZOLE SUSPENSION 30 MG/10 ML ORAL SYRINGE (FIRST-LANSOPRAZOLE) PO SCH (21:00)
[2016-07-23 22:00] VITALS: BP 125/61
[2016-07-24 02:00] VITALS: BP 124/58
[2016-07-24] MEDS: MORPHINE 2 MG/ML 1ML SYRINGE IV PRN (04:45)
[2016-07-24 06:00] VITALS: BP 118/57
[2016-07-24] MEDS: PERCOCET 5MG/325MG TAB PO PRN ×2 (06:42→12:31)
[2016-07-24 07:00] LABS: MEAN CORPUSCULAR HEMOGLOBIN 29.1 pg (27.0-33.0); MEAN CORPUSCULAR HGB CONC 32.3 g/dl (32.0-36.5); RED CELL DISTRIBUTION WIDTH 13.3 % (11.5-14.5); WHITE BLOOD COUNT 7.3 K/mm3 (4.0-10.0)
[2016-07-24 07:07] LABS: CALCIUM LEVEL 7.6 MG/DL (8.8-10.2); CREATININE FOR GFR 1.44 MG/DL (0.70-1.30); GLOMERULAR FILTRATION RATE 53.1 (>49); POTASSIUM SERUM 3.6 MEQ/L (3.5-5.1)
[2016-07-24] MEDS: FLUTICASONE HFA 110 MCG 12 GM INHALER (FLOVENT) INH SCH ×2 (07:08→20:10)
[2016-07-24] MEDS: NS 1,000 ML IV SCH (07:44)
[2016-07-24] MEDS: EZETIMIBE 10 MG TAB (ZETIA) PO SCH (08:55)
[2016-07-24] MEDS: SERTRALINE 100 MG TAB PO SCH (08:55)
[2016-07-24] MEDS: PANTOPRAZOLE 40MG TAB (PROTONIX) PO SCH ×2 (08:58→20:33)
[2016-07-24] MEDS: TOPIRAMATE (TopAMAX) 100 MG TAB PO SCH ×2 (08:59→20:33)
[2016-07-24] MEDS: OLMESARTAN MEDOXOMIL 20 MG TAB (BENICAR) PO SCH (08:59)
[2016-07-24] MEDS: GABAPENTIN 300 MG CAP PO SCH ×3 (08:59→18:24)
[2016-07-24] MEDS: ASPIRIN 81 MG ENTERIC TAB PO SCH (08:59)
[2016-07-24] MEDS: CARVedilol 12.5 MG TAB PO SCH ×2 (09:00→20:33)
[2016-07-24] MEDS: FLUTICASONE PROP 0.05% NASAL SPRAY 16 GM (FLONASE) SCH (09:00)
[2016-07-24] MEDS: DOCUSATE SODIUM 100 MG CAP PO SCH ×2 (09:00→20:33)
[2016-07-24] MEDS: CHLORTHALIDONE 12.5MG PER 1/2 TABLET PO SCH (09:00)
[2016-07-24] MEDS: PRAMIPEXOLE 0.25 MG TAB PO SCH ×2 (09:00→20:33)
[2016-07-24] MEDS: ENOXAPARIN 40 MG/0.4 ML SYRINGE (J1650) SC SCH (09:01)
[2016-07-24 10:00] VITALS: BP 129/67
[2016-07-24] MEDS ORDERED: PERCOCET 5MG/325MG TAB PO PRN (10:45)
--- NOTE | 2016-07-24 10:51 | IPNPDOC ---
Assessment/Plan Date Seen The patient was seen on 07/24/16. Patient Summary This is a 61 y/o M POD1 s/p RALP. He is doing well. Labs this morning look good. Patient has excellent UOP w/ minimal out from the drain. Plan/VTE VTE Prophylaxis Ordered?: Yes VTE Exclusion Mechanical Proph: N/A:VTE Prophy Ordered VTE Exclusion Pharmacological: N/A:VTE Prophy Ordered Plan/Urinary Catheter Reason for insertion/continuin: Other-document below Plan - d/c IVF - transition to PO pain meds w/ morphine for breakthrough pain - ambulate - SCDs, lovenox SQ - incentive spriometer 10x/hr - continue taylor to aid in healing of vesicourethral anastomosis - diabetic diet - continue home meds except xarelto - possible discharge home today w/ catheter - if patient is discharged home the FABY drain will be removed prior Subjective Review oF Systems Chief Complaint The patient is a 61-year-old male admitted with a reason for visit of Prostate Cancer. Events since Last Encounter Had a coughing fit last night while trying to eat. No issues this morning. No n/v. No flatus yet. Good pain control w/ percocet. Ambulated a little this morning. No f/c/ns. Objective Physical Examination General Exam: : Alert: Cooperative: No Acute Distress ABDOMEN EXAM: : Other (soft, mildly tender; incisions clean/dry/intact; FABY draining serosanguinous fluid) Skin Exam: : Nl turgor and temperature Neuro Exam: : Normal Speech Psych Exam: : Mental status NL: Mood NL Other physical findings catheter in place, draining clear urine Vital Signs/I&O Vital Signs Date Time Temp Pulse Resp B/P Pulse Ox O2 Delivery O2 Flow Rate FiO2 07/24/16 09:00 67 118/57 07/24/16 07:12 20 07/24/16 06:00 99.6 95 Room Air 07/23/16 21:54 3.0 I&O- Last 24 Hours up to 6 AM 07/24/16 06:00 Intake Total 4925 ml Output Total 1325 ml Balance 3600 ml Laboratory Data Labs 24H Laboratory Tests 2 07/23/16 13:37: Anion Gap 7L, Blood Urea Nitrogen 29H, Creatinine 1.36H, Sodium Level 144, Potassium Level 4.0, Chloride Level 108H, Carbon Dioxide Level 29, Calcium Level 8.4L, Glomerular Filtration Rate 56.7 07/24/16 05:43: Anion Gap 7L, Blood Urea Nitrogen 27H, Creatinine 1.44H, Sodium Level 142, Potassium Level 3.6, Chloride Level 108H, Carbon Dioxide Level 27, Calcium Level 7.6L, Glomerular Filtration Rate 53.1 CBC/BMP Laboratory Tests 07/23/16 13:37 Calcium Level 8.4 L, Red Blood Count 4.71, Mean Corpuscular Volume 91.0, Mean Corpuscular Hemoglobin 29.4, Mean Corpuscular Hemoglobin Concent 32.3, Red Cell Distribution Width 13.3 07/24/16 05:43 Calcium Level 7.6 L, Red Blood Count 3.91 L, Mean Corpuscular Volume 90.0, Mean Corpuscular Hemoglobin 29.1, Mean Corpuscular Hemoglobin Concent 32.3, Red Cell Distribution Width 13.3 CHELSI GAMBOA MD Jul 24, 2016 10:51
[2016-07-24] MEDS: metFORMIN (GLUCOPHAGE) 500 MG TAB PO SCH (10:58)
[2016-07-24] MEDS ORDERED: MORPHINE 2 MG/ML 1ML SYRINGE IV PRN (11:00)
[2016-07-24] MEDS ORDERED: ACET650S3 PO (12:51)
[2016-07-24] MEDS ORDERED: COLA100C PO (12:51)
[2016-07-24] MEDS ORDERED: LOVE1INJ SC (12:51)
[2016-07-24] MEDS ORDERED: PROT1TAB2 PO (12:51)
[2016-07-24] MEDS ORDERED: CIPR100T2 PO (12:51)
[2016-07-24] MEDS ORDERED: ALBU17IN2 INH (12:51)
[2016-07-24] MEDS ORDERED: OXYC1TAB23 PO (12:51)
[2016-07-24 14:00] VITALS: BP 136/68
[2016-07-24] MEDS: SIMETHICONE 80 MG CHEW TAB PO PRN (18:24)
[2016-07-24] MEDS: ROSUVASTATIN 10 MG TAB (CRESTOR) PO SCH (20:33)
[2016-07-24 22:00] VITALS: BP 120/61
[2016-07-25 06:00] VITALS: BP 167/79
[2016-07-25 07:12] LABS: MEAN CORPUSCULAR HEMOGLOBIN 30.2 pg (27.0-33.0); MEAN CORPUSCULAR HGB CONC 33.7 g/dl (32.0-36.5); MEAN CORPUSCULAR VOLUME 89.6 fl (80.0-96.0); RED CELL DISTRIBUTION WIDTH 13.2 % (11.5-14.5); WHITE BLOOD COUNT 8.6 K/mm3 (4.0-10.0)
[2016-07-25] MEDS: SIMETHICONE 80 MG CHEW TAB PO PRN (07:17)
[2016-07-25] MEDS: PERCOCET 5MG/325MG TAB PO PRN (07:17)
[2016-07-25 07:21] LABS: ANION GAP 9 MEQ/L (8-16); BLOOD UREA NITROGEN 22 MG/DL (7-18); CALCIUM LEVEL 8.7 MG/DL (8.8-10.2); CARBON DIOXIDE LEVEL 26 MEQ/L (21-32); CHLORIDE LEVEL 106 MEQ/L (98-107); CREATININE FOR GFR 1.18 MG/DL (0.70-1.30); GLOMERULAR FILTRATION RATE > 60.0 (>49); GLUCOSE, FASTING 94 MG/DL (80-110); POTASSIUM SERUM 3.5 MEQ/L (3.5-5.1); SODIUM LEVEL 141 MEQ/L (136-145)
[2016-07-25] MEDS: ENOXAPARIN 40 MG/0.4 ML SYRINGE (J1650) SC SCH (08:13)
[2016-07-25] MEDS: FLUTICASONE PROP 0.05% NASAL SPRAY 16 GM (FLONASE) SCH (08:14)
[2016-07-25] MEDS: OLMESARTAN MEDOXOMIL 20 MG TAB (BENICAR) PO SCH (08:14)
[2016-07-25 08:15] VITALS: BP 167/79
[2016-07-25] MEDS: EZETIMIBE 10 MG TAB (ZETIA) PO SCH (08:15)
[2016-07-25] MEDS: CARVedilol 12.5 MG TAB PO SCH (08:15)
[2016-07-25] MEDS: TOPIRAMATE (TopAMAX) 100 MG TAB PO SCH (08:15)
[2016-07-25] MEDS: DOCUSATE SODIUM 100 MG CAP PO SCH (08:15)
[2016-07-25] MEDS: PANTOPRAZOLE 40MG TAB (PROTONIX) PO SCH (08:15)
[2016-07-25] MEDS: CHLORTHALIDONE 12.5MG PER 1/2 TABLET PO SCH (08:16)
[2016-07-25] MEDS: GABAPENTIN 300 MG CAP PO SCH (08:16)
[2016-07-25] MEDS: ASPIRIN 81 MG ENTERIC TAB PO SCH (08:16)
[2016-07-25] MEDS: PRAMIPEXOLE 0.25 MG TAB PO SCH (08:16)
[2016-07-25] MEDS: SERTRALINE 100 MG TAB PO SCH (08:16)
[2016-07-25] MEDS: metFORMIN (GLUCOPHAGE) 500 MG TAB PO SCH (08:17)
[2016-07-25] MEDS: FLUTICASONE HFA 110 MCG 12 GM INHALER (FLOVENT) INH SCH (09:10)
--- NOTE | 2016-07-25 09:58 | IPNPDOC ---
Assessment/Plan Date Seen The patient was seen on 07/25/16. Patient Summary This is a 61 y/o M POD 2 s/p RALP. Doing better today. Labs stable. UOP good. Cr down today to normal. Plan/VTE VTE Prophylaxis Ordered?: Yes VTE Exclusion Mechanical Proph: N/A:VTE Prophy Ordered VTE Exclusion Pharmacological: N/A:VTE Prophy Ordered Plan/Urinary Catheter Reason for insertion/continuin: Other-document below Plan - d/c FABY drain - ambulate - SCDs, lovenox - continue home meds - strict I/Os - diabetic diet - discharge home w/ catheter in place (will need to keep in for healing of vesicourethral anastomosis) - plan for f/u next week for catheter removal Subjective Review oF Systems Chief Complaint The patient is a 61-year-old male admitted with a reason for visit of Prostate Cancer. Events since Last Encounter No acute events o/n. Had some difficulty ambulating yesterday and therefore was kept another day. Ambulating better now. He ate his breakfast this morning w/o any difficulty. No n/v. Still no flatus yet. Pain controlled w/ percocet. No f/c/ns. Objective Physical Examination General Exam: : Alert: Cooperative: No Acute Distress ABDOMEN EXAM: : Other (soft, mildly tender; incisions clean/dry/intact; FABY draining serosanguinous fluid) Skin Exam: : Nl turgor and temperature Neuro Exam: : Normal Speech Psych Exam: : Mental status NL: Mood NL Other physical findings catheter draining clear urine Vital Signs/I&O Vital Signs Date Time Temp Pulse Resp B/P Pulse Ox O2 Delivery O2 Flow Rate FiO2 07/25/16 08:15 66 167/79 07/25/16 07:47 16 Room Air 07/25/16 07:17 98 07/25/16 06:00 99.0 2.0 I&O- Last 24 Hours up to 6 AM 07/25/16 06:00 Intake Total 3755 ml Output Total 3840 ml Balance -85 ml Laboratory Data Labs 24H Laboratory Tests 2 07/25/16 06:30: Anion Gap 9, Blood Urea Nitrogen 22H, Creatinine 1.18, Sodium Level 141, Potassium Level 3.5, Chloride Level 106, Carbon Dioxide Level 26, Calcium Level 8.7L, Glomerular Filtration Rate > 60.0 CBC/BMP Laboratory Tests 07/25/16 06:30 Calcium Level 8.7 L, Red Blood Count 3.90 L, Mean Corpuscular Volume 89.6, Mean Corpuscular Hemoglobin 30.2, Mean Corpuscular Hemoglobin Concent 33.7, Red Cell Distribution Width 13.2 CHELSI GAMBOA MD Jul 25, 2016 09:58
--- NOTE | 2016-07-26 17:38 | DSES ---
DATE OF ADMISSION: 07/23/2016 DATE OF DISCHARGE: 07/25/2016 ADMISSION DIAGNOSES: Prostate cancer. DISCHARGE DIAGNOSIS: Prostate cancer. ADMITTING PHYSICIAN: Kiel Slade M.D. DISCHARGE PHYSICIAN: Kiel Slade M.D. PROCEDURES PERFORMED: Robotic assisted laparoscopic radical prostatectomy on 07/23/2016. HISTORY OF PRESENT ILLNESS: This 61-year-old male was diagnosed with Toshia 6 prostate cancer who elected to undergo the above listed procedure. He is admitted to the hospital postoperatively. HOSPITALIZATION COURSE: The patient is admitted to the hospital after undergoing the above listed procedure on 07/23/2016. His postoperative course was uncomplicated. By postoperative day #1, his labs were within acceptable limits. His diet was advanced to a regular diet on postoperative day #1. He did have some weakness when ambulating on postoperative day #1 and therefore he was not discharged home on postoperative day #1. By postoperative day #2, he was ambulating much better without any difficulties. He was tolerating a regular diet and his pain was controlled with oral pain medication. He was therefore deemed ready for discharge on postoperative day #2. His Dipak Mendez drain had minimal output and therefore it was removed prior to discharge. He was discharged home with his catheter in place with the plan for him to follow up in clinic in about a week for catheter removed. We will also discuss pathology results at his follow up appointment.
== END 2016-07-25 13:00 | disposition home or self-care (01) | DRG 707 ==
LOC: M OR 06:00 → M MS5PR 14:41
PROVIDERS: ADMIT Urology; ATTEND Urology
PROC: 8E0W4CZ Robotic Assisted Procedure of Trunk Region, Percutaneous Endoscopic Approach (ICD-10-PCS; 2016-07-23)
PROC: 0VT04ZZ Resection of Prostate, Percutaneous Endoscopic Approach (ICD-10-PCS; principal; 2016-07-23 13:15)
DX: C61 Malignant neoplasm of prostate (principal); D68.61 Antiphospholipid syndrome; I25.10 Atherosclerotic heart disease of native coronary artery without angina pectoris; I10 Essential (primary) hypertension; G47.30 Sleep apnea, unspecified; E78.5 Hyperlipidemia, unspecified; N52.9 Male erectile dysfunction, unspecified; E11.40 Type 2 diabetes mellitus with diabetic neuropathy, unspecified; E55.9 Vitamin D deficiency, unspecified; R10.13 Epigastric pain; K21.9 Gastro-esophageal reflux disease without esophagitis; N40.0 Benign prostatic hyperplasia without lower urinary tract symptoms; F32.9 Major depressive disorder, single episode, unspecified; M25.50 Pain in unspecified joint; Z79.82 Long term (current) use of aspirin; Z79.84 Long term (current) use of oral hypoglycemic drugs; Z79.01 Long term (current) use of anticoagulants; Z86.718 Personal history of other venous thrombosis and embolism; Z95.9 Presence of cardiac and vascular implant and graft, unspecified; Z72.0 Tobacco use; Z88.8 Allergy status to other drugs, medicaments and biological substances; Z88.1 Allergy status to other antibiotic agents

== ENCOUNTER → 2016-07-29 | Outpatient (CLI) | payer OTHER, MEDICARE ==
[~2016-07-29] MED LIST changes: +ACET650S3 PO; +ALBU17IN2 INH; +CIPR100T2 PO; +COLA100C PO; +LOVE1INJ SC; +OXYC1TAB23 PO; +PROT1TAB2 PO
[2016-07-29 11:34] LABS: MEAN CORPUSCULAR HEMOGLOBIN 29.4 pg (27.0-33.0); MEAN CORPUSCULAR HGB CONC 33.4 g/dl (32.0-36.5); MEAN CORPUSCULAR VOLUME 88.1 fl (80.0-96.0); RED CELL DISTRIBUTION WIDTH 12.9 % (11.5-14.5); WHITE BLOOD COUNT 7.3 K/mm3 (4.0-10.0)
--- NOTE | 2016-07-29 11:51 | REP ---
Clinical: Left flank pain. Comparison: 02/05/2016. Findings: The left kidney stable 4 cm cyst and demonstrates mild hydroureteronephrosis with mild perinephric stranding as well as moderate periureteral stranding extending into the pelvis without evidence for obstructing calculus. A Glass catheter and small amount of gas is identified in collapsed bladder. The right kidney demonstrates small 13 mm cyst. The right ureter is normal. Liver, spleen, pancreas, bilateral adrenal glands are normal for noncontrast examination. The patient is status post cholecystectomy. The enteric system demonstrates scattered sigmoid diverticula without acute diverticulitis and no evidence for bowel obstruction or acute inflammatory process. Normal terminal ileum and appendix are identified in the right lower quadrant. No ascites. No adenopathy. No free air. Abdominal aorta without aneurysm. Surrounding musculoskeletal structures grossly intact. Lung bases clear. Impression: 1. Mild left hydroureteronephrosis along with minimal perinephric and moderate distal periureteral stranding. No evidence for obstructing calculus. Correlation with urinalysis is recommended to exclude pyelonephritis. Right kidney/ureter and collapsed bladder are essentially normal. Incidental note is made of stable 4 cm left and 1.3 cm right renal cysts. 2. Scattered sigmoid diverticula without acute diverticulitis. Signed by Clint Winter MD 07/29/2016 11:42 A
[2016-07-29 11:54] LABS: CALCIUM LEVEL 8.6 MG/DL (8.8-10.2); CREATININE FOR GFR 1.35 MG/DL (0.70-1.30); GLOMERULAR FILTRATION RATE 57.2 (>49); POTASSIUM SERUM 3.7 MEQ/L (3.5-5.1)
== END ==
LOC: M LAB 10:38
PROVIDERS: ATTEND Urology
DX: R10.9 Unspecified abdominal pain (principal); K57.90 Diverticulosis of intestine, part unspecified, without perforation or abscess without bleeding; N28.1 Cyst of kidney, acquired

== ENCOUNTER → 2016-08-05 | Outpatient (CLI) | payer OTHER, MEDICARE ==
[2016-08-05 12:53] LABS: ANION GAP 9 MEQ/L (8-16); BLOOD UREA NITROGEN 28 MG/DL (7-18); CALCIUM LEVEL 9.3 MG/DL (8.8-10.2); CARBON DIOXIDE LEVEL 25 MEQ/L (21-32); CHLORIDE LEVEL 109 MEQ/L (98-107); CREATININE FOR GFR 1.15 MG/DL (0.70-1.30); GLOMERULAR FILTRATION RATE > 60.0 (>49); GLUCOSE, FASTING 167 MG/DL (80-110); POTASSIUM SERUM 3.8 MEQ/L (3.5-5.1); SODIUM LEVEL 143 MEQ/L (136-145)
== END ==
LOC: M LRY 09:55
PROVIDERS: ATTEND Family Medicine
DX: N18.3 Chronic kidney disease, stage 3 (moderate) (principal)

== ENCOUNTER → 2016-08-16 | Outpatient (CLI) | payer OTHER, MEDICARE ==
[~2016-08-16] MED LIST changes: -COLA100C PO; +COLA100C3 PO; -TRIL135C PO; +TRIL135C6 PO
--- NOTE | 2016-08-25 23:42 | ECWPNPC ---
PATIENT NAME: DALTON WYNN : 1955 GENDER: MALE VISIT DATE: 08/16/2016 DISCHARGE DATE: 08/16/16 1108 VISIT LOCKED DATE TIME: PHYSICIAN: KERRY MCGUIRE RESOURCE: KERRY MCGUIRE REASON FOR APPOINTMENT 1. BACK HISTORY OF PRESENT ILLNESS HISTORY OF PRESENT ILLNESS: HERE FOR F/U OF SACRAL -COCCYX PAIN.THIS IS A POST PROCEDURE F/U.HAD BILAT. SACROCOCCYGEAL LIGAMENT BLOCK ON 07/09/16.REPORTS >50% IMPROVEMENT IN PAIN FOR TWENTY DAYS.RATING PAIN VAS 6/10.RECENT PROSTATE LAPROSCOPIC SURGERY 07-23-16.CONTINUES WITH POST OPERATIVE PAIN. PAIN THE PATIENT DESCRIBES THE PAIN... THE PATIENT DESCRIBES THE PAIN... FALL RISK SCREENING: SCREENING :NO FALLS IN THE PAST YEAR CURRENT MEDICATIONS TAKING OXYCODONE HCL 5 MG TABLET 1 TABLET ORALLY Q10H PRN FOR PAIN MDD2 TAKING ASPIR-81 81 MG TABLET DELAYED RELEASE 1 TABLET ORALLY ONCE A DAY TAKING CHLORTHALIDONE 12.5 12.5MG TABLET 1TAB ORAL DAILY TAKING CRESTOR 40 MG TABLET 1 TABLET ORALLY ONCE A DAY TAKING FLONASE 50 MCG/ACT SUSPENSION 2 SPRAYS IN EACH NOSTRIL NASALLY ONCE A DAY TAKING GABAPENTIN 600 MG TABLET 1 TABLET ORALLY THREE TIMES A DAY TAKING KLOR-CON M20 20 MEQ TABLET EXTENDED RELEASE 1 TABLET ORALLY DAILY TAKING MIRAPEX 0.75 MG TABLET 1 TABLET BEFORE BEDTIME ORALLY BID TAKING NITROGLYCERIN 0.3 MG TABLET SUBLINGUAL 1 TABLET UNDER THE TONGUE AND ALLOW TO DISSOLVE NEEDED SUBLINGUAL EVERY 0 HRS TAKING PREVACID 30 MG CAPSULE DELAYED RELEASE 1 CAPSULE BEFORE A MEAL ORALLY BID TAKING VITAMIN D2 23328 UNITS TABLET 1TAB ORALLY EVERY 2 WEEKS TAKING BENICAR 40 MG TABLET 1 TAB ORALLY ONCE DAILY TAKING TOPAMAX 100 MG TABLET 1 TABLET ORALLY TWICE A DAY TAKING HYPROMELLOSE 0.4 % SOLUTION 1 DROP INTO AFFECTED EYE NEEDED OPHTHALMIC ONCE A DAY TAKING XARELTO 20 MG TABLET 1 TABLET WITH FOOD ORALLY ONCE DAILY TAKING ZETIA 10 MG TABLET 1 TABLET ORALLY ONCE A DAY TAKING PROAIR HFA 108 (90 BASE) MCG/ACT AEROSOL SOLUTION 2 PUFFS NEEDED INHALATION EVERY 4 HRS TAKING FLOVENT HFA 110 MCG/ACT AEROSOL 2 PUFFS INHALATION TWICE A DAY TAKING SERTRALINE HCL 100 MG TABLET 1 TABLET ORALLY ONCE A DAY TAKING COREG 25 MG TABLET ORALLY TWICE DAILY TAKING LOVENOX 40 MG/0.4ML SOLUTION 0.4 ML SUBCUTANEOUS ONCE A DAY BRIDGE TAKING LIDOCAINE 5% (140 MG) PATCH EXTERNALLY TWICE DAILY NEEDED TAKING LOVAZA 1 GM CAPSULE 1 CAP ORALLY TWICE A DAY TAKING JANUVIA 50 MG TABLET 1 TAB ORALLY ONCE A DAY NOT-TAKING GLUCOPHAGE 500 MG TABLET 1 TABLET WITH MEALS ORALLY ONCE A DAY, NOTES: 07-08-16 AM NOT-TAKING FLOMAX 0.4 MG CAPSULE 1 CAPSULE 30 MINUTES AFTER THE SAME MEAL EACH DAY ORALLY ONCE A DAY, NOTES: 07-08-16 1200 NOT-TAKING PERCOCET 5-325 MG TABLET 1-2 TABLET(S) ORALLY EVERY 6 HRS NEEDED FOR PAIN (MDD 8) NOT-TAKING CIPROFLOXACIN HCL 500 MG TABLET 1 TABLET ORALLY DAILY NOT-TAKING COLACE 100 MG CAPSULE 1 CAPSULE ORALLY BID MEDICATION LIST REVIEWED AND RECONCILED WITH THE PATIENT PAST MEDICAL HISTORY HYPERTENSION SLEEP APNEA CAD HYPERLIPIDEMIA ARTHRALGIA DIVERTICULOSIS ERECTILE DYSFUNCTION DIABETIC NEUROPATHY DYSPEPSIA DIABETES MELLITUS DEPRESSION BPH ESOPHAGEAL REFLUX VITAMIN D DEFICIENCY WHEEZING ANTIPHOSPHOLID ANTIBODY SYNDROME ALLERGIES ERYTHROMYCIN: HIVES: ALLERGY ALTACE: COUGH: SIDE EFFECTS ABILIFY: SEVERE HEADACHES: SIDE EFFECTS NEXIUM: NAUSEA/VOMITING: CONTRAINDICATION OXYTETRACYCLINE HCL: MOUTH SORES: ALLERGY SOCIAL HISTORY GENERAL: PAIN CLINIC PFS, CLERGY, PUBLIC HEALTH REFERRALS CLERGY REFERRAL NEEDED?NO WAS THE PROVIDER NOTIFIED OF ANY PERTINENT INFO?NO PFS REFERRAL NEEDED?NO PUBLIC HEALTH REFERRAL NEEDED?NO PATIENT: ____. REVIEW OF SYSTEMS CONSTITUTIONAL: ANY CHANGE IN YOUR MEDICAL CONDITION? YES . CHILLS NO . FEVER NO . INFECTION: DO YOU HAVE NEW INFECTIONS? NO . DO YOU HAVE HISTORY OF MRSA? NO . MUSCULOSKELETAL: ANY NEW PATTERNS OF PAIN OR NUMBNESS? NO . GASTROENTEROLOGY: ANY NEW CHANGE IN BOWEL CONTROL? NO . GENITOURINARY: ANY NEW CHANGE IN BLADDER CONTROL? YES, INCONTINENCE RELATED RECENT PROSTATE SURGERY . IS THERE A CHANCE YOU COULD BE ? NO . HEMATOLOGY/LYMPH: DO YOU TAKE ANY BLOOD THINNERS? (FOR EXAMPLE- COUMADIN, PLAVIX, AGGRENOX, PLATEL, PRADAXA, OR XARELTO) YES, XARELTO . WHEN WAS YOUR LAST DOSE? DATE:08/16/16 TIME: 0730 . NEUROLOGY: HAVE YOU FALLEN IN THE PAST 6 MONTHS? NO . ANY NEW EXTREMITY NUMBNESS OR WEAKNESS? NO . CARDIOLOGY: DO YOU HAVE A PACEMAKER OR DEFIBRILLATOR? NO . RESPIRATORY: HAVE YOU BEEN SICK IN THE PAST WEEK? NO . FEVER NO . FLU LIKE SYMPTOMS? NO . COUGH NO . INTEGUMENTARY: DO YOU HAVE ANY RASHES OR OPEN SORES? YES, SURGERY 07/23/16 . ALLERGIC/IMMUNO: ARE YOU ALLERGIC TO SHELLFISH OR IV DYE? NO . ANY NEW ALLERGIES? NO . PSYCHIATRIC: DO YOU HAVE THOUGHTS OF HURTING YOURSELF OR SOMEONE ELSE? NO . ARE YOU ABUSED, NEGLECTED, OR IN AN UNSAFE ENVIRONMENT? NO . ENDOCRINOLOGY: ARE YOU DIABETIC? YES . OTHER: DO YOU NEED ANY PRESCRIPTIONS? YES . IF YES, PLEASE LIST: ____ . ANY NEW PROBLEMS WITH YOUR MEDICATIONS? NO . WHEN DID YOU LAST EAT? ____ . WHEN DID YOU LAST DRINK? ____ . WHAT DID YOU LAST DRINK? ____ . NAME OF PERSON DRIVING YOU HOME? ____ . DO YOU HAVE ANY OTHER QUESTIONS OR CONCERNS NO . REVIEWED BY: PROVIDER: KERRY ABREU . VITAL SIGNS WT 218.2 LBS, HT 68 IN, BMI 33.17 INDEX, BP 120/66 MM HG, HR 66 /MIN, RR 20 /MIN, TEMP 98.5 F, OXYGEN SAT % 96%, REVIEWED BY: ETTA. EXAMINATION GENERAL EXAMINATION: LUNGS:LUNG SOUNDS ARE CLEAR. HEART:HEART RATE REGULAR. MUSCULOSKELETAL:*, MUSCLE STRENGTH TESTING 5/5 BILATERAL, PALPATION: POSITIVE FOR PAIN OVER L/S SPINE. POSITIVE FOR PAIN OVER L/S PARASPINALS. DIAGNOSTIC: . ASSESSMENTS SPINAL ENTHESOPATHY, SACRAL AND SACROCOCCYGEAL REGION - M46.08 (PRIMARY) CHRONIC PRESCRIPTION OPIATE USE - Z79.891 LUMBAR FACET ARTHROPATHY - M12.88 TREATMENT SPINAL ENTHESOPATHY, SACRAL AND SACROCOCCYGEAL REGION REFILL OXYCODONE HCL TABLET, 5 MG, 1 TABLET, ORALLY, Q10H PRN FOR PAIN MDD2, 30 DAY(S), 60, REFILLS 0 NOTES: ISTOP REGISTRY REVIEWED AND DEMNOSTRATES COMPLLIANCE. BRINGS IN MEDICATIONS WHICH IS APPROPRIATE FOR WHAT WAS DISPENSED. RECENT URINE TOXICOLOGY REVIEWED. NO UNAUTHORIZED MEDICATIONS. NO ILLICIT SUBSTANCES AND PRESCRIBED MEDICATIONS WERE PRESENT. , RISKS AND BENEFITS OF NARCOTIC/OPIOD MEDICATIONS WERE REVIEWED WITH PATIENT - THIS INCLUDES BUT IS NOT LIMITED TO RISK OF DEPENDANCE/DEVELOPMENT OF ADDICTION, MOOD DISTURBANCE AND DEPRESSION, OSTEOPOROSIS, HORMONAL AND LABIDAL CHANGES, RESPIRATORY DEPRESSION AND . PATIENT IS ADVISED NOT TO DRIVE WHILE ON THESE MEDICATIONS. PROCEDURE CODES FA211 ESTABILISHED PATIENT [facility] CHARGE DISPOSITION & COMMUNICATION FOLLOW UP 6 WEEKS ELECTRONICALLY SIGNED BY BRADY PAT ON 08/25/2016 AT 12:52 PM EDT DISCLAIMER : THIS IS A VISIT SUMMARY EXTRACTED FROM THE [employer] CHART. IT IS NOT A COPY OF THE [employer] PROGRESS NOTE. IRASEMA
== END | disposition home or self-care (01) ==
LOC: M PAIN 10:20
PROVIDERS: ATTEND Nurse Practitioner Family
DX: G89.29 Other chronic pain (principal); M46.08 Spinal enthesopathy, sacral and sacrococcygeal region; M12.88 Other specific arthropathies, not elsewhere classified, other specified site; E11.40 Type 2 diabetes mellitus with diabetic neuropathy, unspecified; I10 Essential (primary) hypertension; G47.30 Sleep apnea, unspecified; I25.10 Atherosclerotic heart disease of native coronary artery without angina pectoris; E78.5 Hyperlipidemia, unspecified; F33.9 Major depressive disorder, recurrent, unspecified; N40.0 Benign prostatic hyperplasia without lower urinary tract symptoms; K21.9 Gastro-esophageal reflux disease without esophagitis; E55.9 Vitamin D deficiency, unspecified; D68.61 Antiphospholipid syndrome; Z79.899 Other long term (current) drug therapy; Z79.82 Long term (current) use of aspirin; Z79.01 Long term (current) use of anticoagulants; Z79.84 Long term (current) use of oral hypoglycemic drugs; Z88.1 Allergy status to other antibiotic agents; Z88.8 Allergy status to other drugs, medicaments and biological substances

== ENCOUNTER → 2016-08-19 | Outpatient (CLI) | payer OTHER | LOC: M SMT 11:53 | PROVIDERS: ATTEND Nurse Practitioner Family | DX: C61 Malignant neoplasm of prostate (principal) | CPT/HCPCS: 36415; 51798; 84153; G0463 ==

== ENCOUNTER → 2016-08-25 | Outpatient (CLI) | payer OTHER, MEDICARE ==
--- NOTE | 2016-08-26 04:53 | REP ---
Clinical: Prostate cancer. Technique: Real time schultz scale ultrasound examination. Findings: Right kidney is normal in reniform shape and echogenicity measuring 12.9 x 4.7 x 5.8 cm with a 1 cm cortical lower pole presumed cyst. No associated hydronephrosis, nephrolithiasis, or mass lesion otherwise noted. Left kidney is normal in reniform shape and echogenicity measuring 11.7 x 4.6 x 5.3 cm with a 4.4 cm simple lower pole cyst. No associated hydronephrosis, nephrolithiasis, or mass lesion otherwise noted. Bladder is not evaluated. Impression: 4.4 cm simple left renal cyst. 1 cm presumed complex right renal cyst; consider 12-month follow-up. Signed by Clint Winter MD 08/26/2016 04:44 A
== END ==
LOC: M SMT 10:58
PROVIDERS: ATTEND Nurse Practitioner Family
DX: N28.1 Cyst of kidney, acquired (principal); C61 Malignant neoplasm of prostate; E55.9 Vitamin D deficiency, unspecified

== ENCOUNTER → 2016-08-25 | Outpatient (CLI) | payer OTHER ==
[2016-08-25 14:59] LABS: ANION GAP 7 MEQ/L (8-16); BLOOD UREA NITROGEN 31 MG/DL (7-18); CALCIUM LEVEL 8.6 MG/DL (8.8-10.2); CARBON DIOXIDE LEVEL 26 MEQ/L (21-32); CHLORIDE LEVEL 110 MEQ/L (98-107); GLOMERULAR FILTRATION RATE > 60.0 (>49); GLUCOSE, FASTING 123 MG/DL (80-110); POTASSIUM SERUM 3.4 MEQ/L (3.5-5.1); SODIUM LEVEL 143 MEQ/L (136-145)
== END ==
LOC: M SMT 11:03
PROVIDERS: ATTEND Family Medicine
DX: N18.3 Chronic kidney disease, stage 3 (moderate) (principal); E55.9 Vitamin D deficiency, unspecified

== ENCOUNTER → 2016-08-25 | Outpatient (REF) | payer OTHER | LOC: M SMT 13:02 | PROVIDERS: ATTEND Urology | DX: C61 Malignant neoplasm of prostate (principal) ==

== ENCOUNTER → 2016-09-28 | Outpatient (CLI) | payer OTHER, MEDICARE ==
--- NOTE | 2016-10-20 01:15 | ECWPNPC ---
PATIENT NAME: DALTON WYNN : 1955 GENDER: MALE VISIT DATE: 09/28/2016 DISCHARGE DATE: 09/28/16 1008 VISIT LOCKED DATE TIME: PHYSICIAN: KERRY MCGUIRE RESOURCE: KERRY MCGUIRE REASON FOR APPOINTMENT 1. FOLLOWUP HISTORY OF PRESENT ILLNESS HISTORY OF PRESENT ILLNESS: HERE FOR F/U OF SACRAL -COCCYX PAIN.T.HAD BILAT. SACROCOCCYGEAL LIGAMENT BLOCK ON 07/09/16.REPORTS >50% IMPROVEMENT IN PAIN FOR TWENTY DAYS.RATING PAIN VAS 5/10.RECENT PROSTATE LAPROSCOPIC SURGERY 07-23-16.CONTINUES WITH POST OPERATIVE PAIN.HAD CARDIAC STENTING IN SEPTEMBER.HE NOW HAS A TOTAL OF 5 STENTS.HAVING AN INCREASE IN LOW BACK PAIN.USING GABAPENTIN 600MG TID AND OXYCODONE 5MG Q8H PRN MDD2.FINDS MEDICATION SOMEWHAT HELPFUL.DENIES SIDE EFFECTS.ON PLAVIX THERAPY. PAIN THE PATIENT DESCRIBES THE PAIN... THE PATIENT DESCRIBES THE PAIN... THE PATIENT DESCRIBES THE PAIN... FALL RISK SCREENING: SCREENING :NO FALLS IN THE PAST YEAR CURRENT MEDICATIONS TAKING ASPIR-81 81 MG TABLET DELAYED RELEASE 1 TABLET ORALLY ONCE A DAY TAKING CHLORTHALIDONE 12.5 12.5MG TABLET 1TAB ORAL DAILY TAKING CRESTOR 40 MG TABLET 1 TABLET ORALLY ONCE A DAY TAKING FLONASE 50 MCG/ACT SUSPENSION 2 SPRAYS IN EACH NOSTRIL NASALLY ONCE A DAY TAKING GABAPENTIN 600 MG TABLET 1 TABLET ORALLY THREE TIMES A DAY TAKING KLOR-CON M20 20 MEQ TABLET EXTENDED RELEASE 1 TABLET ORALLY DAILY TAKING MIRAPEX 0.75 MG TABLET 1 TABLET BEFORE BEDTIME ORALLY BID TAKING NITROGLYCERIN 0.3 MG TABLET SUBLINGUAL 1 TABLET UNDER THE TONGUE AND ALLOW TO DISSOLVE NEEDED SUBLINGUAL EVERY 0 HRS TAKING PREVACID 30 MG CAPSULE DELAYED RELEASE 1 CAPSULE BEFORE A MEAL ORALLY BID TAKING VITAMIN D2 19420 UNITS TABLET 1TAB ORALLY EVERY 2 WEEKS TAKING BENICAR 40 MG TABLET 1 TAB ORALLY ONCE DAILY TAKING TOPAMAX 100 MG TABLET 1 TABLET ORALLY TWICE A DAY TAKING HYPROMELLOSE 0.4 % SOLUTION 1 DROP INTO AFFECTED EYE NEEDED OPHTHALMIC ONCE A DAY TAKING XARELTO 20 MG TABLET 1 TABLET WITH FOOD ORALLY ONCE DAILY TAKING ZETIA 10 MG TABLET 1 TABLET ORALLY ONCE A DAY TAKING PROAIR HFA 108 (90 BASE) MCG/ACT AEROSOL SOLUTION 2 PUFFS NEEDED INHALATION EVERY 4 HRS TAKING FLOVENT HFA 110 MCG/ACT AEROSOL 2 PUFFS INHALATION TWICE A DAY TAKING SERTRALINE HCL 100 MG TABLET 1 TABLET ORALLY ONCE A DAY TAKING COREG 25 MG TABLET ORALLY TWICE DAILY TAKING LIDOCAINE 5% (140 MG) PATCH EXTERNALLY TWICE DAILY NEEDED TAKING LOVAZA 1 GM CAPSULE 1 CAP ORALLY TWICE A DAY TAKING JANUVIA 50 MG TABLET 1 TAB ORALLY ONCE A DAY TAKING OXYCODONE HCL 5 MG TABLET 1 TABLET ORALLY Q10H PRN FOR PAIN MDD2 TAKING OXYBUTYNIN CHLORIDE ER 5 MG TABLET EXTENDED RELEASE 24 HOUR 1 TABLET ORALLY ONCE A DAY TAKING PLAVIX 75 MG TABLET 1 TABLET ORALLY ONCE A DAY NOT-TAKING LOVENOX 40 MG/0.4ML SOLUTION 0.4 ML SUBCUTANEOUS ONCE A DAY BRIDGE NOT-TAKING DIFLUCAN 150 MG TABLET 1 TABLET ORALLY ONCE NOT-TAKING GLUCOPHAGE 500 MG TABLET 1 TABLET WITH MEALS ORALLY ONCE A DAY, NOTES: 07-08-16 AM NOT-TAKING FLOMAX 0.4 MG CAPSULE 1 CAPSULE 30 MINUTES AFTER THE SAME MEAL EACH DAY ORALLY ONCE A DAY, NOTES: 07-08-16 1200 NOT-TAKING PERCOCET 5-325 MG TABLET 1-2 TABLET(S) ORALLY EVERY 6 HRS NEEDED FOR PAIN (MDD 8) NOT-TAKING CIPROFLOXACIN HCL 500 MG TABLET 1 TABLET ORALLY DAILY NOT-TAKING COLACE 100 MG CAPSULE 1 CAPSULE ORALLY BID MEDICATION LIST REVIEWED AND RECONCILED WITH THE PATIENT PAST MEDICAL HISTORY HYPERTENSION SLEEP APNEA CAD HYPERLIPIDEMIA ARTHRALGIA DIVERTICULOSIS ERECTILE DYSFUNCTION DIABETIC NEUROPATHY DYSPEPSIA DIABETES MELLITUS DEPRESSION BPH ESOPHAGEAL REFLUX VITAMIN D DEFICIENCY WHEEZING ANTIPHOSPHOLID ANTIBODY SYNDROME ALLERGIES ERYTHROMYCIN: HIVES: ALLERGY ALTACE: COUGH: SIDE EFFECTS ABILIFY: SEVERE HEADACHES: SIDE EFFECTS NEXIUM: NAUSEA/VOMITING: CONTRAINDICATION OXYTETRACYCLINE HCL: MOUTH SORES: ALLERGY SURGICAL HISTORY HEART STENT TONSILLECTOMY CARPAL TUNNEL RELEASE HEMORRHOIDECTOMY COLONOSCOPY ANGIOPLASTY [facility] ON LEFT AND RIGHT SHOULDER ULNAR NERVE RELOCATION LEFT AND RIGHT ELBOWS CERVICAL FUSION WITH DISC REPLACEMENT/HARDWARE 09/2015 RADICAL PROSTATECTOMY 07/23/16 STENTS IN HEART HOSPITALIZATION/MAJOR DIAGNOSTIC PROCEDURE SURGERY RELATED PE 09/2015 REVIEW OF SYSTEMS CONSTITUTIONAL: ANY CHANGE IN YOUR MEDICAL CONDITION? YES. PT STATES HE HAD HEART STENTS REPLACED 09/2016 . CHILLS NO . FEVER NO . INFECTION: DO YOU HAVE NEW INFECTIONS? NO . DO YOU HAVE HISTORY OF MRSA? NO . MUSCULOSKELETAL: ANY NEW PATTERNS OF PAIN OR NUMBNESS? YES. PT STATES PAIN IN BACK IS WORSE. CURRENTLY PAIN IS 5/10. PT STATES PAIN INCREASES AT NIGHT TO 8/10. . GASTROENTEROLOGY: ANY NEW CHANGE IN BOWEL CONTROL? NO . GENITOURINARY: ANY NEW CHANGE IN BLADDER CONTROL? YES. PT REPORTS STRESS INCONTINENCE, AND DRIBBLING DURING EXERCISE. . IS THERE A CHANCE YOU COULD BE ? NO . HEMATOLOGY/LYMPH: DO YOU TAKE ANY BLOOD THINNERS? (FOR EXAMPLE- COUMADIN, PLAVIX, AGGRENOX, PLATEL, PRADAXA, OR XARELTO) YES, XARELTO, PLAVIX . WHEN WAS YOUR LAST DOSE? DATE: TIME: . NEUROLOGY: HAVE YOU FALLEN IN THE PAST 6 MONTHS? YES, TRIPPED IN YARD, MOVING LAWN MOWERS. STUBBED TOE AND FELL. PT DENIES INJURIES, REPORTS MINOR SCRAPES . ANY NEW EXTREMITY NUMBNESS OR WEAKNESS? NO . CARDIOLOGY: DO YOU HAVE A PACEMAKER OR DEFIBRILLATOR? NO . RESPIRATORY: HAVE YOU BEEN SICK IN THE PAST WEEK? NO . FEVER NO . FLU LIKE SYMPTOMS? NO . COUGH NO . INTEGUMENTARY: DO YOU HAVE ANY RASHES OR OPEN SORES? YES, BUG BITES . ALLERGIC/IMMUNO: ARE YOU ALLERGIC TO SHELLFISH OR IV DYE? NO . ANY NEW ALLERGIES? NO . PSYCHIATRIC: DO YOU HAVE THOUGHTS OF HURTING YOURSELF OR SOMEONE ELSE? NO . ARE YOU ABUSED, NEGLECTED, OR IN AN UNSAFE ENVIRONMENT? NO . ENDOCRINOLOGY: ARE YOU DIABETIC? YES . OTHER: DO YOU NEED ANY PRESCRIPTIONS? NO . IF YES, PLEASE LIST: ____ . ANY NEW PROBLEMS WITH YOUR MEDICATIONS? NO . WHEN DID YOU LAST EAT? ____ . WHEN DID YOU LAST DRINK? ____ . WHAT DID YOU LAST DRINK? ____ . NAME OF PERSON DRIVING YOU HOME? ____ . DO YOU HAVE ANY OTHER QUESTIONS OR CONCERNS NO . REVIEWED BY: PROVIDER: KERRY ABREU . VITAL SIGNS WT 210.0 LBS, HT 68 IN, BMI 31.93 INDEX, BP 110/68 MM HG, HR 59 /MIN, RR 18 /MIN, TEMP 97.1 F, OXYGEN SAT % 96%, SAFE IN ENV? (Y/N) Y, NA INITIALS TL 0938, REVIEWED BY: EM. EXAMINATION GENERAL EXAMINATION: LUNGS:LUNG SOUNDS ARE CLEAR. HEART:HEART RATE REGULAR. MUSCULOSKELETAL:*, MUSCLE STRENGTH TESTING 5/5 BILATERAL, PALPATION: POSITIVE FOR PAIN OVER L/S SPINE. POSITIVE FOR PAIN OVER L/S PARASPINALS. DIAGNOSTIC: . ASSESSMENTS SPINAL ENTHESOPATHY, SACRAL AND SACROCOCCYGEAL REGION - M46.08 (PRIMARY) CHRONIC PRESCRIPTION OPIATE USE - Z79.891 LUMBAR FACET ARTHROPATHY - M12.88 TREATMENT SPINAL ENTHESOPATHY, SACRAL AND SACROCOCCYGEAL REGION CONTINUE OXYCODONE HCL TABLET, 5 MG, 1 TABLET, ORALLY, Q10H PRN FOR PAIN MDD2 REFILL LIDOCAINE PATCH, 5% (140 MG), 1 PATCH TO SKIN REMOVE AFTER 12 HOURS, EXTERNALLY, TWICE DAILY NEEDED, 30 DAY(S), 30, REFILLS 1 PROCEDURE CODES FA211 ESTABILISHED PATIENT [facility] CHARGE DISPOSITION & COMMUNICATION FOLLOW UP 2 MONTHS ELECTRONICALLY SIGNED BY BRADY PAT ON 10/19/2016 AT 08:06 AM EDT DISCLAIMER : THIS IS A VISIT SUMMARY EXTRACTED FROM THE [employer] CHART. IT IS NOT A COPY OF THE [employer] PROGRESS NOTE. EDNAD
== END ==
LOC: M PAIN 09:20
PROVIDERS: ATTEND Nurse Practitioner Family
DX: G89.29 Other chronic pain (principal); M46.08 Spinal enthesopathy, sacral and sacrococcygeal region; M12.88 Other specific arthropathies, not elsewhere classified, other specified site; I10 Essential (primary) hypertension; G47.30 Sleep apnea, unspecified; E78.5 Hyperlipidemia, unspecified; E11.40 Type 2 diabetes mellitus with diabetic neuropathy, unspecified; K30 Functional dyspepsia; E55.9 Vitamin D deficiency, unspecified; D68.61 Antiphospholipid syndrome; Z88.1 Allergy status to other antibiotic agents; Z88.8 Allergy status to other drugs, medicaments and biological substances; N39.3 Stress incontinence (female) (male); Z79.01 Long term (current) use of anticoagulants; Z79.82 Long term (current) use of aspirin; Z79.891 Long term (current) use of opiate analgesic; Z79.899 Other long term (current) drug therapy

== ENCOUNTER → 2016-10-07 | Outpatient (CLI) | payer OTHER, MEDICARE ==
[2016-10-07 12:54] LABS: MEAN CORPUSCULAR HEMOGLOBIN 28.7 pg (27.0-33.0); MEAN CORPUSCULAR HGB CONC 32.4 g/dl (32.0-36.5); MEAN CORPUSCULAR VOLUME 88.7 fl (80.0-96.0); RED CELL DISTRIBUTION WIDTH 14.8 % (11.5-14.5); WHITE BLOOD COUNT 5.4 K/mm3 (4.0-10.0)
[2016-10-07 13:13] LABS: ALBUMIN 3.7 GM/DL (3.2-5.2); ANION GAP 8 MEQ/L (8-16); BLOOD UREA NITROGEN 28 MG/DL (7-18); CALCIUM LEVEL 9.5 MG/DL (8.8-10.2); CARBON DIOXIDE LEVEL 28 MEQ/L (21-32); CHLORIDE LEVEL 109 MEQ/L (98-107); CREATININE FOR GFR 1.13 MG/DL (0.70-1.30); GLOMERULAR FILTRATION RATE > 60.0 (>49); GLUCOSE, FASTING 131 MG/DL (80-110); PHOSPHORUS LEVEL 2.9 MG/DL (2.5-4.9); POTASSIUM SERUM 3.3 MEQ/L (3.5-5.1); SODIUM LEVEL 145 MEQ/L (136-145)
== END ==
LOC: M LRY 09:57
PROVIDERS: ATTEND Physician Assistant
DX: I25.10 Atherosclerotic heart disease of native coronary artery without angina pectoris (principal)

== ENCOUNTER → 2016-10-26 | Outpatient (REF) | payer OTHER, MEDICARE ==
[~2016-10-26] MED LIST changes: +DITR5TAB PO; +PLAV75TA38 PO; +SITA50TAB PO
== END ==
LOC: M LABSMT 08:01
PROVIDERS: ATTEND Urology
DX: C61 Malignant neoplasm of prostate (principal)

== ENCOUNTER → 2016-10-26 | Outpatient (CLI) | payer OTHER, MEDICARE ==
[2016-10-26 13:16] LABS: MEAN CORPUSCULAR HEMOGLOBIN 28.6 pg (27.0-33.0); MEAN CORPUSCULAR VOLUME 86.6 fl (80.0-96.0); RED CELL DISTRIBUTION WIDTH 14.9 % (11.5-14.5); RETIC HEMOGLOBIN CONTENT CHr 29.2 PG (24-36); RETICULOCYTE % ADVIA2120 1.8 % (0.5-1.5); WHITE BLOOD COUNT 4.4 K/mm3 (4.0-10.0)
[2016-10-26 13:45] LABS: FOLATE 10.6 NG/ML (>5.4); VITAMIN B12 LEVEL 513 PG/ML (247-911)
[2016-10-26 14:10] LABS: ALBUMIN 3.8 GM/DL (3.2-5.2); ALKALINE PHOSPHATASE 88 U/L (45-117); ALT/SGPT 27 U/L (12-78); ANION GAP 8 MEQ/L (8-16); AST/SGOT 16 U/L (15-37); BILIRUBIN,TOTAL 0.3 MG/DL (0.2-1.0); BLOOD UREA NITROGEN 31 MG/DL (7-18); CARBON DIOXIDE LEVEL 24 MEQ/L (21-32); CHLORIDE LEVEL 112 MEQ/L (98-107); CHOLESTEROL LEVEL 123 MG/DL (<200); CREATININE FOR GFR 1.26 MG/DL (0.70-1.30); FERRITIN 15 NG/ML (26-388); GLOMERULAR FILTRATION RATE > 60.0 (>49); GLUCOSE, FASTING 117 MG/DL (80-110); PERCENT SATURATION 10.8 % (19.7-37.4); POTASSIUM SERUM 3.3 MEQ/L (3.5-5.1); SODIUM LEVEL 144 MEQ/L (136-145); TOTAL IRON BINDING CAPACITY 399 UG/DL (250-450); TOTAL PROTEIN 7.6 GM/DL (6.4-8.2); TRIGLYCERIDES LEVEL 270 MG/DL (<150)
== END ==
LOC: M LRY 08:09
PROVIDERS: ATTEND Family Medicine
DX: N18.3 Chronic kidney disease, stage 3 (moderate) (principal); E55.9 Vitamin D deficiency, unspecified; D64.9 Anemia, unspecified; I12.9 Hypertensive chronic kidney disease with stage 1 through stage 4 chronic kidney disease, or unspecified chronic kidney disease; E78.5 Hyperlipidemia, unspecified; E08.8 Diabetes mellitus due to underlying condition with unspecified complications

== ENCOUNTER 2016-10-30 17:13 | Emergency (ER) | payer MEDICARE, OTHER ==
[~2016-10-30] VITALS: Ht 172.7 cm; Wt 100.0 kg
[~2016-10-30 17:13] MED LIST changes: +BENI1TAB PO; +BENI40TA26 PO; -BENI40TA3 PO; -CIPR100T2 PO; +CIPR100T4 PO; -COLA100C3 PO; +COLA100C5 PO; -DITR5TAB PO; -PERC10TA17 PO; +PERC10TA26 PO; -PLAV75TA38 PO; +PREV1CAP PO; -PREV30CA11 PO; -PROA1AER INH; +PROAAER10 INH; +QVAR1AER2 INH; -QVAR80AE7 INH; -SITA50TAB PO; +TOPA100T12 PO; -TOPA100T8 PO; +TOPA1TAB PO; -TOPA25TA10 PO; -TOPI50TA4 PO; +TOPI50TA9 PO; -ZETI10TA2 PO; +ZETI10TA30 PO
[2016-10-30] MEDS ORDERED: ONDANSETRON 4MG/2ML VIAL (J2405) IV ONE (17:30)
[2016-10-30] MEDS ORDERED: ADACEL/BOOSTRIX VACCINE (DIPHTH/PERTUSS/ACELL/TETANUS)0.5ML SYR (90715) IM ONE (17:30)
[2016-10-30] MEDS ORDERED: PLAV1TAB2 PO (17:34)
[2016-10-30] MEDS ORDERED: XARE20TA PO (17:34)
[2016-10-30] MEDS ORDERED: SITA50TAB PO (17:34)
[2016-10-30] MEDS ORDERED: DITR5TAB PO (17:34)
[2016-10-30] MEDS ORDERED: ISOVUE-370 76% 100ML VIAL (Q9967) As Ordered ONE (17:37)
[2016-10-30] MEDS: MORPHINE 4 MG/ML 1ML SYRINGE IV PRN ×2 (17:56→18:33)
[2016-10-30 18:07] LABS: BASO # 0.2 K/mm3 (0.0-0.2); BASO % 1.3 % (0.0-1.0); EOS # 0.3 K/mm3 (0.0-0.50); EOS % 2.2 % (0.0-3.0); LARGE UNSTAINED CELL # 0.2 K/mm3 (0.0-0.4); LARGE UNSTAINED CELL % 1.2 % (0.0-4.0); LYMPH # 2.7 K/mm3 (1.5-4.5); LYMPH % 19.9 % (24.0-44.0); MEAN CORPUSCULAR HEMOGLOBIN 28.1 pg (27.0-33.0); MEAN CORPUSCULAR HGB CONC 31.9 g/dl (32.0-36.5); MEAN CORPUSCULAR VOLUME 88.2 fl (80.0-96.0); MONO # 0.5 K/mm3 (0.0-0.8); MONO % 3.8 % (0.0-5.0); NEUTROPHILS # 9.7 K/mm3 (1.8-7.7); NEUTROPHILS % 71.6 % (36.0-66.0); PLATELET COUNT, AUTOMATED 234 k/mm3 (150-450); RED CELL DISTRIBUTION WIDTH 14.9 % (11.5-14.5); WHITE BLOOD COUNT 13.5 K/mm3 (4.0-10.0)
[2016-10-30 18:09] LABS: INR 1.87
--- NOTE | 2016-10-30 18:20 | REPUSA ---
CT of the facial bones clinical history: trauma. Comparison: none. Technique: Multiple axial CT images were obtained through the facial bones and paranasal sinuses util izing 3 mm axial slices without administration of contrast. Coronal and sagittal reconstructions were also obtained. Findings: The visualized paranasal sinuses are clear that we. However, chronic mucosal changes are se en in the left maxillary sinus. The osteomeatal complexes are patent bilaterally. The nasal septum is midline. The visualized mastoid air cells are clear. There are no acute fractures identified. Previo us surgical fixation of the left orbit along the floor of the orbit is noted. There is extensive supe rficial soft tissue swelling and subcutaneous emphysema is seen in the left frontal region. Impression: 1. No acute fractures. 2. Large area of superficial soft tissue swelling and subcutaneous emphysema in the left frontal alejandro on. 3. Postoperative changes in the floor of the left orbit with chronic mucosal changes in the left maxi llary sinus.
[2016-10-30 18:27] LABS: ALBUMIN 3.3 GM/DL (3.2-5.2); ALBUMIN/GLOBULIN RATIO 0.92 (1.00-1.93); ALKALINE PHOSPHATASE 67 U/L (45-117); ALT/SGPT 27 U/L (12-78); AMYLASE 49 U/L (25-115); ANION GAP 5 MEQ/L (8-16); AST/SGOT 24 U/L (15-37); BILIRUBIN,DIRECT < 0.1 MG/DL (0.0-0.2); BILIRUBIN,TOTAL 0.3 MG/DL (0.2-1.0); BLOOD UREA NITROGEN 24 MG/DL (7-18); CALCIUM LEVEL 8.8 MG/DL (8.8-10.2); CARBON DIOXIDE LEVEL 29 MEQ/L (21-32); CHLORIDE LEVEL 111 MEQ/L (98-107); CREATININE FOR GFR 1.23 MG/DL (0.70-1.30); GLOMERULAR FILTRATION RATE > 60.0 (>49); GLUCOSE, FASTING 112 MG/DL (80-110); POTASSIUM SERUM 3.6 MEQ/L (3.5-5.1); SODIUM LEVEL 145 MEQ/L (136-145); TOTAL PROTEIN 6.9 GM/DL (6.4-8.2)
--- NOTE | 2016-10-30 18:30 | REPUSA ---
CT of the cervical spine Clinical history: trauma. Technique: Multiple axial CT images were obtained through the cervical spine without administration o f contrast. Coronal and sagittal 3-D reconstructed images were also obtained. Comparison: None. Findings: There is an acute nondisplaced fracture along posterior inferior vertebral body of C2, extending into the right lateral mass. The cervical vertebral bodies are in satisfactory positioning and alignment. Extensive cervical fusion is noted from C3 through C7, both along the anterior and posterior aspects . The odontoid process is intact. There is no evidence of facet subluxation. The neural foramen appea r grossly patent. The cervical cranial junction is intact. The cervical spinal canal demonstrates nor mal caliber and contour without evidence of spinal stenosis. The surrounding soft tissues are within normal limits. Impression: 1. Acute oblique fracture along the posterior inferior base of the C2 vertebral body, extending into the right lateral mass. No displaced osseous fragments are noted. The odontoid process is intact. 2. Extensive surgical fixation from C3 through C7 is grossly intact. ER physician was notified of these findings at 6:30 PM on 10/30/2016.
--- NOTE | 2016-10-30 18:40 | REPUSA ---
CT of the head Clinical history: trauma. Technique: Multiple axial CT images were obtained through the head without administration of contrast . Findings: The ventricles and sulci are symmetric bilaterally. There is subarachnoid hemorrhage demons trated in the suprasellar cistern, tracking along the middle cerebral artery bilaterally. There is al so subarachnoid hemorrhage or mistreated along the left cerebellopontine angle. Acute subdural blood is seen in the right frontal lobe. Trace amount of subdural hemorrhage is seen in the posterior left frontal lobe. There is no midline shift, mass effect, or extra-axial fluid collection. The osseous st ructures are unremarkable. The visualized paranasal sinuses and mastoid air cells are zoila. Extensive superficial soft tissue swelling with subcutaneous emphysema is seen in the left frontal region. Impression: Extensive subarachnoid and subdural hemorrhage predominately in the frontal lobes bilate rally as well as in the left cerebellopontine angle as described. No evidence of mass effect or herni ation at this time. Large superficial soft tissue contusion noted in the left frontal region as descr ibed as well. ER physician was aware of these findings, and call was placed at 6:30 PM on 10/30/2016.
[2016-10-30] MEDS ORDERED: DESMOPRESSIN ACETATE 30 MCG in NS 50 ML IV ONE (18:45)
--- NOTE | 2016-10-30 18:50 | REPUSA ---
CT of the chest with contrast Clinical history: trauma. Technique: Multiple axial CT images were obtained from the thoracic inlet through the upper abdomen a fter a bolus administration of nonionic intravenous contrast. Coronal and sagittal reconstructions we re also obtained. No comparison is available. The pulmonary arteries are well-opacified with contrast, with no intraluminal filling defects to sugg est embolism. The thoracic aorta is unremarkable. Thyroid gland is within normal limits. There is no thoracic lymphadenopathy. There are no pericardial or pleural effusions. The lungs are clear. Limited imaging of the upper abdomen is unremarkable. There are no suspicious osseous lesions. Impression: No acute traumatic injury.
--- NOTE | 2016-10-30 19:00 | REPUSA ---
CT of the abdomen and pelvis with contrast Clinical statement: trauma. Technique: Multiple axial CT images were obtained from the base of the lungs through the floor of the pelvis utilizing 5 mm axial slices after administration of nonionic intravenous contrast. Coronal an d sagittal reconstructions were also obtained. Comparison: none. Findings: Chest: The visualized lung bases are clear. Abdomen: The liver, spleen, pancreas, kidneys, and adrenal glands are unremarkable. There is a 1 cm s imple cyst in the anterior right lobe of the liver. There is a 5 mm simple cyst in the inferior pole of the right kidney. There is a simple cyst in the inferior left kidney measuring 2.5 cm in diameter. The aorta is within normal limits. There is no evidence of abdominal lymphadenopathy or ascites. Pelvis: The bowel is unremarkable, with no obstructive or inflammatory changes. The appendix is quinton l. The urinary bladder is within normal limits. The other pelvic structures appear grossly intact. Th ere is no evidence of pelvic lymphadenopathy or ascites. Bones: There are no suspicious osseous abnormalities seen. There is moderate degenerative disc diseas e at L5/S1. Impression: 1. No acute traumatic injury. 2. Simple cysts within the liver and both kidneys. 3. No obstructive or inflammatory bowel changes. 4. Moderate degenerative disc disease at L5/S1.
[2016-10-30] MEDS ORDERED: PROTHROMBIN COMPLEX CONCEN IV ONE (19:15)
[2016-10-30] MEDS ORDERED: STERILE WATER IV ONE (19:15)
[2016-10-30 19:44] VITALS: BP 153/71
--- NOTE | 2016-10-31 07:28 | ECGEPIP ---
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
== END 2016-10-30 19:50 | disposition short-term general hospital (02) ==
LOC: EDBD 17:13 → M ED 18:28
DX: S06.6X9A Traumatic subarachnoid hemorrhage with loss of consciousness of unspecified duration, initial encounter (principal); S06.5X9A Traumatic subdural hemorrhage with loss of consciousness of unspecified duration, initial encounter; S12.191A Other nondisplaced fracture of second cervical vertebra, initial encounter for closed fracture; S82.892A Other fracture of left lower leg, initial encounter for closed fracture; V28.0XXA Motorcycle driver injured in noncollision transport accident in nontraffic accident, initial encounter; Y92.410 Unspecified street and highway as the place of occurrence of the external cause; D68.61 Antiphospholipid syndrome; R06.02 Shortness of breath; I12.9 Hypertensive chronic kidney disease with stage 1 through stage 4 chronic kidney disease, or unspecified chronic kidney disease; G47.33 Obstructive sleep apnea (adult) (pediatric); E78.5 Hyperlipidemia, unspecified; I25.10 Atherosclerotic heart disease of native coronary artery without angina pectoris; Z95.5 Presence of coronary angioplasty implant and graft; J45.909 Unspecified asthma, uncomplicated; E11.9 Type 2 diabetes mellitus without complications; E78.00 Pure hypercholesterolemia, unspecified; N18.2 Chronic kidney disease, stage 2 (mild); Z86.711 Personal history of pulmonary embolism; F32.9 Major depressive disorder, single episode, unspecified; F41.9 Anxiety disorder, unspecified; Z98.1 Arthrodesis status; Z79.899 Other long term (current) drug therapy; Z79.01 Long term (current) use of anticoagulants; Z79.02 Long term (current) use of antithrombotics/antiplatelets; Z79.84 Long term (current) use of oral hypoglycemic drugs; Z79.51 Long term (current) use of inhaled steroids; Z88.8 Allergy status to other drugs, medicaments and biological substances; Z88.3 Allergy status to other anti-infective agents; Z88.1 Allergy status to other antibiotic agents; Z85.46 Personal history of malignant neoplasm of prostate
CPT/HCPCS: 51702; 70450; 70486; 71260; 72125; 74177; 80048; 80076; 82150; 82550; 82553; 83605; 83690; 85025; 85610; 85730; 86850; 86870; 86900; 86901; 90471; 90715; 93005; 93041; 94760; 96365; 96367; 96372; 96375; 96376; 99285; C9132; J2405; J2597; Q9967

== ENCOUNTER → 2016-12-27 | Outpatient (CLI) | payer OTHER ==
[~2016-12-27] MED LIST changes: +ASCO500T PO; +DITR5TAB PO; +FERR1TAB8 PO; +METF500T13 PO; +OLME20TA2 PO; +OXYB5TAB PO; +PLAV1TAB2 PO; +REFR0.5D8 OU; +SERT-138 PO; +SITA50TAB PO
[2016-12-27 11:07] LABS: MEAN CORPUSCULAR HEMOGLOBIN 29.1 pg (27.0-33.0); MEAN CORPUSCULAR HGB CONC 33.1 g/dl (32.0-36.5); RED CELL DISTRIBUTION WIDTH 15.7 % (11.5-14.5); RETIC HEMOGLOBIN CONTENT CHr 29.9 PG (24-36); WHITE BLOOD COUNT 5.4 K/mm3 (4.0-10.0)
[2016-12-27 11:38] LABS: ALBUMIN 3.4 GM/DL (3.2-5.2); ALBUMIN/GLOBULIN RATIO 0.89 (1.00-1.93); ALKALINE PHOSPHATASE 71 U/L (45-117); ALT/SGPT 19 U/L (12-78); ANION GAP 8 MEQ/L (8-16); AST/SGOT 13 U/L (15-37); BILIRUBIN,DIRECT < 0.1 MG/DL (0.0-0.2); BILIRUBIN,TOTAL 0.3 MG/DL (0.2-1.0); BLOOD UREA NITROGEN 16 MG/DL (7-18); CALCIUM LEVEL 9.6 MG/DL (8.8-10.2); CARBON DIOXIDE LEVEL 27 MEQ/L (21-32); CHLORIDE LEVEL 110 MEQ/L (98-107); CHOLESTEROL LEVEL 123 MG/DL (<200); GLOMERULAR FILTRATION RATE > 60.0 (>49); GLUCOSE, FASTING 98 MG/DL (80-110); PERCENT SATURATION 17.4 % (19.7-50.0); POTASSIUM SERUM 3.7 MEQ/L (3.5-5.1); SODIUM LEVEL 145 MEQ/L (136-145); TOTAL IRON BINDING CAPACITY 281 UG/DL (250-450); TOTAL PROTEIN 7.2 GM/DL (6.4-8.2); TRIGLYCERIDES LEVEL 192 MG/DL (<150)
[2016-12-27 12:30] LABS: FOLATE > 24.0 NG/ML (>5.4)
== END ==
LOC: M LRY 09:19
PROVIDERS: ATTEND Family Medicine
DX: I25.10 Atherosclerotic heart disease of native coronary artery without angina pectoris (principal); E78.2 Mixed hyperlipidemia; D50.8 Other iron deficiency anemias; E53.8 Deficiency of other specified B group vitamins; E87.6 Hypokalemia; Z95.5 Presence of coronary angioplasty implant and graft

== ENCOUNTER → 2016-12-27 | Outpatient (CLI) | payer OTHER | LOC: M LRY 09:11 | PROVIDERS: ATTEND Family Medicine | DX: I25.10 Atherosclerotic heart disease of native coronary artery without angina pectoris (principal); E78.2 Mixed hyperlipidemia; Z95.5 Presence of coronary angioplasty implant and graft ==

== ENCOUNTER → 2017-01-03 | Outpatient (REF) | payer OTHER, MEDICARE | LOC: M LAB REF 15:20 | PROVIDERS: ATTEND Family Medicine | DX: D50.8 Other iron deficiency anemias (principal) ==

== ENCOUNTER → 2017-01-06 | Outpatient (CLI) | payer MEDICARE, OTHER ==
[2017-01-06 12:16] LABS: ALBUMIN 3.3 GM/DL (3.2-5.2); ANION GAP 10 MEQ/L (8-16); BLOOD UREA NITROGEN 16 MG/DL (7-18); CALCIUM LEVEL 9.2 MG/DL (8.8-10.2); CARBON DIOXIDE LEVEL 23 MEQ/L (21-32); CHLORIDE LEVEL 112 MEQ/L (98-107); GLOMERULAR FILTRATION RATE > 60.0 (>49); GLUCOSE, FASTING 115 MG/DL (80-110); POTASSIUM SERUM 3.5 MEQ/L (3.5-5.1); SODIUM LEVEL 145 MEQ/L (136-145)
== END ==
LOC: M LAB 10:27
PROVIDERS: ATTEND Family Medicine
DX: E83.51 Hypocalcemia (principal); E87.6 Hypokalemia

== ENCOUNTER 2017-01-20 12:12 | Inpatient (IN) | payer OTHER ==
[~2017-01-20] VITALS: Ht 172.7 cm; Wt 92.4 kg
[~2017-01-20 12:12] MED LIST changes: -ASCO500T PO; -FERR1TAB8 PO; -METF500T13 PO; -OLME20TA2 PO; -OXYB5TAB PO; -REFR0.5D8 OU; -SERT-138 PO
[2017-01-20 13:09] LABS: VENOUS BASE EXCESS -2.3 (-2.0-2.0); VENOUS O2 SATURATION 85.9 % (60.0-80.0); VENOUS PARTIAL PRESSURE CO2 51.7 mmHg (38.0-50.0); VENOUS STANDARD HCO3 22.3 MEQ/L; VENOUS TOTAL CO2 26.2 MEQ/L (24.0-28.0)
[2017-01-20 13:21] LABS: BASO % 0.4 % (0.0-1.0); EOS # 0.3 K/mm3 (0.0-0.50); EOS % 4.7 % (0.0-3.0); LARGE UNSTAINED CELL # 0.2 K/mm3 (0.0-0.4); LARGE UNSTAINED CELL % 2.9 % (0.0-4.0); LYMPH # 2.3 K/mm3 (1.5-4.5); LYMPH % 35.5 % (24.0-44.0); MEAN CORPUSCULAR HEMOGLOBIN 29.7 pg (27.0-33.0); MEAN CORPUSCULAR HGB CONC 33.1 g/dl (32.0-36.5); MEAN CORPUSCULAR VOLUME 89.8 fl (80.0-96.0); MONO # 0.4 K/mm3 (0.0-0.8); MONO % 6.3 % (0.0-5.0); NEUTROPHILS # 3.3 K/mm3 (1.8-7.7); NEUTROPHILS % 50.2 % (36.0-66.0); PLATELET COUNT, AUTOMATED 197 k/mm3 (150-450); WHITE BLOOD COUNT 6.5 K/mm3 (4.0-10.0)
[2017-01-20 13:23] LABS: INR 2.04
--- NOTE | 2017-01-20 13:25 | REP ---
Portable chest x-ray: Single view. History: Septic shock. Comparison chest x-ray July 15, 2016. Findings: EKG monitoring electrodes overlie the chest. An orthopedic anchor is seen in the humeral head on the right. Both distal clavicles have been resected. The lungs are exposed at a lesser level of inspiration today. There is some subsegmental discoid atelectasis in the right base. No definite infiltrate. Heart is not enlarged. Impression: Subsegmental discoid atelectasis right base. No definite infiltrate. Somewhat lesser level of inspiration today. Signed by Kevin Bolaños MD 01/20/2017 03:50 P
[2017-01-20] MEDS ORDERED: NS 500 ML IV ONE ×2 (13:30→15:30)
[2017-01-20 13:46] LABS: ALKALINE PHOSPHATASE 63 U/L (45-117); ALT/SGPT 17 U/L (12-78); AMYLASE 44 U/L (25-115); AST/SGOT 13 U/L (15-37); BILIRUBIN,DIRECT < 0.1 MG/DL (0.0-0.2); BILIRUBIN,TOTAL 0.2 MG/DL (0.2-1.0); BLOOD UREA NITROGEN 26 MG/DL (7-18); CHLORIDE LEVEL 112 MEQ/L (98-107); GLUCOSE, FASTING 99 MG/DL (80-110); POTASSIUM SERUM 3.6 MEQ/L (3.5-5.1); SODIUM LEVEL 148 MEQ/L (136-145); TOTAL PROTEIN 7.1 GM/DL (6.4-8.2)
[2017-01-20 14:22] LABS: ALBUMIN 3.4 GM/DL (3.2-5.2); ALBUMIN/GLOBULIN RATIO 0.92 (1.00-1.93); ANION GAP 10 MEQ/L (8-16); CARBON DIOXIDE LEVEL 26 MEQ/L (21-32)
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
[2017-01-20] MEDS ORDERED: GLUCAGON FOR INJ 1 MG VIAL (J1610) SC PRN (16:15)
[2017-01-20] MEDS ORDERED: GLUCOSE 4 GM CHEW TABLET PO PRN (16:15)
[2017-01-20] MEDS ORDERED: DEXTROSE 50% 50 ML SYRINGE IV PRN (16:15)
--- NOTE | 2017-01-20 16:27 | REP ---
Clinical: Headache and loss of memory. Comparison: 10/30/2016. Findings: Age-related atrophy and microvascular ischemic changes are appreciated. Area of encephalomalacia involving the right frontal lobe. Previously noted subdural and subarachnoid hemorrhage has resolved. The ventricles and sulci are symmetric. De La O-white differentiation is maintained. There is no evidence for acute intracranial hemorrhage, mass/mass effect, pathology or infarction. No extra-axial fluid collection. Calvarium is intact. Paranasal sinuses and mastoid air cells are clear. Impression: Age-related changes and right frontal lobe encephalomalacia. Previously noted subarachnoid and subdural hemorrhage have resolved. I No new, acute intracranial process appreciated. Signed by Clint Winter MD 01/20/2017 04:19 P
[2017-01-20] MEDS ORDERED: CRES40TA PO (17:07)
[2017-01-20] MEDS ORDERED: ASCO500T PO (17:07)
[2017-01-20] MEDS ORDERED: FERR1TAB8 PO (17:07)
[2017-01-20] MEDS ORDERED: SERT-138 PO (17:07)
[2017-01-20] MEDS ORDERED: METF500T13 PO (17:07)
[2017-01-20] MEDS ORDERED: REFR0.5D8 OU (17:07)
[2017-01-20] MEDS ORDERED: OXYB5TAB PO (17:07)
--- NOTE | 2017-01-20 17:13 | REP ---
Clinical: Bilateral lower extremity pain and swelling . Technique: De La O scale and color Doppler evaluation using linear high frequency transducer. Findings: Ultrasound examination of the right and left lower extremity deep venous structures from the common femoral vein to the popliteal vein demonstrates normal compressibility flow and wave patterns in response to respiration and augmentation. There is no evidence for deep venous thrombosis. Impression: No evidence for deep venous thrombosis bilaterally . Signed by Clint Winter MD 01/20/2017 05:04 P
[2017-01-20] MEDS ORDERED: POLYVINYL ALCOHOL OPHTH SOLN 15 ML(LIQUITEARS) OU PRN (17:30)
[2017-01-20] MEDS ORDERED: NITROGLYCERIN 0.3 MG SUBL TAB SL PRN (17:30)
[2017-01-20] MEDS: oxyBUTYnin *DITROPAN XL* 5 MG TABCR PO SCH (18:00)
[2017-01-20] MEDS: NS 1,000 ML IV SCH (18:30)
[2017-01-20] MEDS: HumaLOG INSULIN (NovoLOG) PER UNIT SC SCH ×2 (19:10→21:00)
[2017-01-20] MEDS: ASCORBIC ACID 500 MG TAB PO SCH (20:54)
[2017-01-20] MEDS: FERROUS SULFATE 325MG TAB PO SCH (20:54)
[2017-01-20] MEDS: GABAPENTIN 300 MG CAP PO SCH (20:54)
[2017-01-20] MEDS: EZETIMIBE 10 MG TAB (ZETIA) PO SCH (20:55)
[2017-01-20 22:15] VITALS: BP 142/67
[2017-01-20] MEDS: ROSUVASTATIN 10 MG TAB (CRESTOR) PO SCH (22:40)
[2017-01-21 01:26] VITALS: BP 159/72
[2017-01-21] MEDS: NS 1,000 ML IV SCH (02:40)
[2017-01-21 06:00] VITALS: BP 142/86
--- NOTE | 2017-01-21 07:50 | ECGEPIP ---
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
[2017-01-21 08:00] VITALS: BP 155/78
[2017-01-21] MEDS ORDERED: metFORMIN (GLUCOPHAGE) 500 MG TAB PO SCH (08:00)
[2017-01-21 08:09] LABS: MEAN CORPUSCULAR HEMOGLOBIN 28.9 pg (27.0-33.0); MEAN CORPUSCULAR HGB CONC 32.3 g/dl (32.0-36.5); MEAN CORPUSCULAR VOLUME 89.7 fl (80.0-96.0); RED CELL DISTRIBUTION WIDTH 15.8 % (11.5-14.5); WHITE BLOOD COUNT 5.2 K/mm3 (4.0-10.0)
[2017-01-21 08:30] LABS: ALBUMIN/GLOBULIN RATIO 0.79 (1.00-1.93); ALKALINE PHOSPHATASE 55 U/L (45-117); ALT/SGPT 18 U/L (12-78); ANION GAP 10 MEQ/L (8-16); AST/SGOT 11 U/L (15-37); BILIRUBIN,TOTAL 0.3 MG/DL (0.2-1.0); BLOOD UREA NITROGEN 22 MG/DL (7-18); CALCIUM LEVEL 9.1 MG/DL (8.8-10.2); CARBON DIOXIDE LEVEL 26 MEQ/L (21-32); CHLORIDE LEVEL 113 MEQ/L (98-107); CREATININE FOR GFR 0.88 MG/DL (0.70-1.30); GLOMERULAR FILTRATION RATE > 60.0 (>49); GLUCOSE, FASTING 106 MG/DL (80-110); POTASSIUM SERUM 3.6 MEQ/L (3.5-5.1); SODIUM LEVEL 149 MEQ/L (136-145); TOTAL PROTEIN 6.8 GM/DL (6.4-8.2)
[2017-01-21] MEDS ORDERED: SITagliptin 50 MG TAB (JANUVIA) PO SCH (09:00)
[2017-01-21] MEDS ORDERED: OLMESARTAN MEDOXOMIL 20 MG TAB (BENICAR) PO SCH (09:00)
[2017-01-21] MEDS: RIVAROXABAN 20 MG TAB (XARELTO) PO SCH (09:37)
[2017-01-21] MEDS: ASCORBIC ACID 500 MG TAB PO SCH ×3 (09:37→20:46)
[2017-01-21] MEDS: GABAPENTIN 300 MG CAP PO SCH ×3 (09:38→20:45)
[2017-01-21] MEDS: PANTOPRAZOLE 40MG TAB (PROTONIX) PO SCH (09:38)
[2017-01-21] MEDS: HumaLOG INSULIN (NovoLOG) PER UNIT SC SCH ×4 (09:38→20:40)
[2017-01-21] MEDS: SERTRALINE 100 MG TAB PO SCH (09:51)
[2017-01-21] MEDS: FERROUS SULFATE 325MG TAB PO SCH ×3 (09:51→20:46)
[2017-01-21] MEDS: OLMESARTAN MEDOXOMIL 20 MG TAB (BENICAR) PO SCH (10:26)
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
[2017-01-21 12:00] VITALS: BP 167/75
[2017-01-21] MEDS ORDERED: CLOPIDOGREL 75 MG TAB PO SCH (12:00)
[2017-01-21] MEDS ORDERED: POTASSIUM CHLORIDE 10 MEQ SR TABLET PO SCH (12:00)
[2017-01-21 16:00] VITALS: BP 157/62
[2017-01-21 19:57] VITALS: BP 149/75
[2017-01-21] MEDS: ROSUVASTATIN 10 MG TAB (CRESTOR) PO SCH (20:45)
[2017-01-21] MEDS: EZETIMIBE 10 MG TAB (ZETIA) PO SCH (20:46)
[2017-01-21] MEDS: oxyBUTYnin *DITROPAN XL* 5 MG TABCR PO SCH (20:46)
[2017-01-21] MEDS ORDERED: PRAMIPEXOLE 0.25 MG TAB PO SCH (21:00)
[2017-01-22] VITALS: BP 143/71
[2017-01-22 04:00] VITALS: BP 140/67
[2017-01-22 07:25] LABS: MEAN CORPUSCULAR HEMOGLOBIN 29.2 pg (27.0-33.0); MEAN CORPUSCULAR HGB CONC 32.6 g/dl (32.0-36.5); MEAN CORPUSCULAR VOLUME 89.5 fl (80.0-96.0); RED CELL DISTRIBUTION WIDTH 15.9 % (11.5-14.5); WHITE BLOOD COUNT 6.2 K/mm3 (4.0-10.0)
[2017-01-22] MEDS: HumaLOG INSULIN (NovoLOG) PER UNIT SC SCH (07:30)
[2017-01-22 07:39] LABS: ALBUMIN 3.2 GM/DL (3.2-5.2); ALBUMIN/GLOBULIN RATIO 0.84 (1.00-1.93); ALKALINE PHOSPHATASE 61 U/L (45-117); ALT/SGPT 17 U/L (12-78); ANION GAP 9 MEQ/L (8-16); AST/SGOT 6 U/L (15-37); BILIRUBIN,TOTAL 0.2 MG/DL (0.2-1.0); BLOOD UREA NITROGEN 18 MG/DL (7-18); CALCIUM LEVEL 8.8 MG/DL (8.8-10.2); CARBON DIOXIDE LEVEL 25 MEQ/L (21-32); CHLORIDE LEVEL 115 MEQ/L (98-107); CREATININE FOR GFR 0.71 MG/DL (0.70-1.30); GLOMERULAR FILTRATION RATE > 60.0 (>49); GLUCOSE, FASTING 96 MG/DL (80-110); POTASSIUM SERUM 3.5 MEQ/L (3.5-5.1); SODIUM LEVEL 149 MEQ/L (136-145)
[2017-01-22 08:00] VITALS: BP 145/80
[2017-01-22] MEDS ORDERED: OLME20TA2 PO (08:59)
[2017-01-22 09:47] VITALS: BP 157/76
[2017-01-22] MEDS: OLMESARTAN MEDOXOMIL 20 MG TAB (BENICAR) PO SCH (09:47)
[2017-01-22] MEDS: GABAPENTIN 300 MG CAP PO SCH (09:48)
[2017-01-22] MEDS: RIVAROXABAN 20 MG TAB (XARELTO) PO SCH (09:48)
[2017-01-22] MEDS: ASCORBIC ACID 500 MG TAB PO SCH (09:48)
[2017-01-22] MEDS: PANTOPRAZOLE 40MG TAB (PROTONIX) PO SCH (09:48)
[2017-01-22] MEDS: FERROUS SULFATE 325MG TAB PO SCH (09:53)
[2017-01-22] MEDS: SERTRALINE 100 MG TAB PO SCH (09:53)
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
== END 2017-01-22 12:07 | disposition home or self-care (01) | DRG 312 ==
LOC: M ED 12:12 → M ED INP 16:18
PROVIDERS: ADMIT Family Medicine; ATTEND Internal Medicine
DX: I95.2 Hypotension due to drugs (principal); D68.61 Antiphospholipid syndrome; I10 Essential (primary) hypertension; E78.5 Hyperlipidemia, unspecified; I25.10 Atherosclerotic heart disease of native coronary artery without angina pectoris; G47.33 Obstructive sleep apnea (adult) (pediatric); F32.9 Major depressive disorder, single episode, unspecified; E11.40 Type 2 diabetes mellitus with diabetic neuropathy, unspecified; K21.9 Gastro-esophageal reflux disease without esophagitis; M43.22 Fusion of spine, cervical region; N40.0 Benign prostatic hyperplasia without lower urinary tract symptoms; N52.9 Male erectile dysfunction, unspecified; G25.81 Restless legs syndrome; R51 Headache; R60.0 Localized edema; Z79.02 Long term (current) use of antithrombotics/antiplatelets; Z79.84 Long term (current) use of oral hypoglycemic drugs; Z95.9 Presence of cardiac and vascular implant and graft, unspecified; Z79.01 Long term (current) use of anticoagulants; Z86.711 Personal history of pulmonary embolism; Z99.89 Dependence on other enabling machines and devices; Z88.6 Allergy status to analgesic agent; Z88.8 Allergy status to other drugs, medicaments and biological substances

== ENCOUNTER → 2017-02-01 | Outpatient (CLI) | payer OTHER ==
[~2017-02-01] MED LIST changes: +ASCO500T PO; +FERR1TAB8 PO; +METF500T13 PO; +OLME20TA2 PO; +OXYB5TAB PO; +REFR0.5D8 OU; +SERT-138 PO
[2017-02-01 12:42] LABS: ALBUMIN 3.5 GM/DL (3.2-5.2); ALKALINE PHOSPHATASE 62 U/L (45-117); ALT/SGPT 19 U/L (12-78); ANION GAP 8 MEQ/L (8-16); AST/SGOT 9 U/L (15-37); BILIRUBIN,DIRECT < 0.1 MG/DL (0.0-0.2); BILIRUBIN,TOTAL 0.4 MG/DL (0.2-1.0); BLOOD UREA NITROGEN 25 MG/DL (7-18); CALCIUM LEVEL 9.4 MG/DL (8.8-10.2); CARBON DIOXIDE LEVEL 25 MEQ/L (21-32); CHLORIDE LEVEL 113 MEQ/L (98-107); CHOLESTEROL LEVEL 98 MG/DL (<200); GLOMERULAR FILTRATION RATE > 60.0 (>49); GLUCOSE, FASTING 107 MG/DL (80-110); POTASSIUM SERUM 3.5 MEQ/L (3.5-5.1); SODIUM LEVEL 146 MEQ/L (136-145); TRIGLYCERIDES LEVEL 93 MG/DL (<150)
== END ==
LOC: M LRY 09:43
PROVIDERS: ATTEND Family Medicine
DX: E87.6 Hypokalemia (principal); E78.2 Mixed hyperlipidemia

== ENCOUNTER → 2017-04-07 | Outpatient (RCR) | payer OTHER, MEDICARE | LOC: M CR 08:59 | PROVIDERS: ATTEND Internal Medicine Cardiovascular Disease | DX: Z51.89 Encounter for other specified aftercare (principal); I25.10 Atherosclerotic heart disease of native coronary artery without angina pectoris; Z98.61 Coronary angioplasty status ==

== ENCOUNTER 2017-04-08 09:33 | Outpatient (RCR) | payer OTHER, MEDICARE | END 2017-05-08 | LOC: M CR 09:33 | DX: Z98.61 Coronary angioplasty status (principal); I25.10 Atherosclerotic heart disease of native coronary artery without angina pectoris | CPT/HCPCS: 93798 ==

== ENCOUNTER → 2017-04-12 | Outpatient (CLI) | payer OTHER, MEDICARE | LOC: M PAIN 08:45 | DX: M12.88 Other specific arthropathies, not elsewhere classified, other specified site (principal); M12.50 Traumatic arthropathy, unspecified site; I10 Essential (primary) hypertension; I25.2 Old myocardial infarction; F32.9 Major depressive disorder, single episode, unspecified; Z79.891 Long term (current) use of opiate analgesic; Z79.899 Other long term (current) drug therapy; Z79.84 Long term (current) use of oral hypoglycemic drugs; Z79.01 Long term (current) use of anticoagulants; Z88.1 Allergy status to other antibiotic agents; Z88.8 Allergy status to other drugs, medicaments and biological substances; Z95.5 Presence of coronary angioplasty implant and graft | CPT/HCPCS: G0463 ==

== ENCOUNTER → 2017-04-12 | Outpatient (CLI) | payer OTHER, MEDICARE ==
[2017-04-12 11:00] LABS: RETIC HEMOGLOBIN EQUIVALENT 34.1 pg (24-36); RETICULOCYTE % 1.4 % (0.5-1.5)
[2017-04-12 11:28] LABS: ALBUMIN 3.4 GM/DL (3.2-5.2); ALBUMIN/GLOBULIN RATIO 0.92 (1.00-1.93); ALKALINE PHOSPHATASE 79 U/L (45-117); ALT/SGPT 31 U/L (12-78); AST/SGOT 21 U/L (7-37); BILIRUBIN,DIRECT < 0.1 MG/DL (0.0-0.2); BILIRUBIN,TOTAL 0.3 MG/DL (0.2-1.0); CHOLESTEROL LEVEL 145 MG/DL (<200); FERRITIN 79 NG/ML (26-388); PERCENT SATURATION 42.8 % (19.7-50.0); TOTAL IRON BINDING CAPACITY 278 UG/DL (250-450); TOTAL PROTEIN 7.1 GM/DL (6.4-8.2); TRIGLYCERIDES LEVEL 226 MG/DL (<150)
[2017-04-12 13:01] LABS: FOLATE 15.1 NG/ML (>5.4)
== END ==
LOC: M LAB 10:09
PROVIDERS: ATTEND Family Medicine
DX: E78.2 Mixed hyperlipidemia (principal)

== ENCOUNTER → 2017-04-18 | Outpatient (CLI) | payer OTHER ==
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
== END ==
LOC: M RAD 14:31
PROVIDERS: ATTEND Nurse Practitioner Family
DX: M54.2 Cervicalgia (principal)

== ENCOUNTER 2017-05-10 09:17 | Outpatient (RCR) | payer OTHER, MEDICARE | END 2017-06-08 | LOC: M CR 09:17 | DX: Z98.61 Coronary angioplasty status (principal); I25.10 Atherosclerotic heart disease of native coronary artery without angina pectoris | CPT/HCPCS: 93798 ==

== ENCOUNTER → 2017-05-10 | Outpatient (CLI) | payer OTHER, MEDICARE | LOC: M PAIN 09:30 | DX: G89.21 Chronic pain due to trauma (principal); M54.2 Cervicalgia; M12.88 Other specific arthropathies, not elsewhere classified, other specified site; M12.50 Traumatic arthropathy, unspecified site; I10 Essential (primary) hypertension; G47.30 Sleep apnea, unspecified; I25.10 Atherosclerotic heart disease of native coronary artery without angina pectoris; E78.5 Hyperlipidemia, unspecified; E11.40 Type 2 diabetes mellitus with diabetic neuropathy, unspecified; F32.9 Major depressive disorder, single episode, unspecified; K21.9 Gastro-esophageal reflux disease without esophagitis; E55.9 Vitamin D deficiency, unspecified; D68.61 Antiphospholipid syndrome; Z88.1 Allergy status to other antibiotic agents; Z88.8 Allergy status to other drugs, medicaments and biological substances; Z79.01 Long term (current) use of anticoagulants; Z79.84 Long term (current) use of oral hypoglycemic drugs; Z79.899 Other long term (current) drug therapy; Z91.5 Personal history of self-harm | CPT/HCPCS: G0463 ==

== ENCOUNTER → 2017-05-16 | Outpatient (REF) | payer OTHER, MEDICARE ==
[2017-05-16 11:43] LABS: ALBUMIN 3.6 GM/DL (3.2-5.2); ALKALINE PHOSPHATASE 94 U/L (45-117); ALT/SGPT 31 U/L (12-78); ANION GAP 7 MEQ/L (8-16); AST/SGOT 20 U/L (7-37); BILIRUBIN,DIRECT < 0.1 MG/DL (0.0-0.2); BILIRUBIN,TOTAL 0.3 MG/DL (0.2-1.0); BLOOD UREA NITROGEN 26 MG/DL (7-18); CALCIUM LEVEL 8.8 MG/DL (8.8-10.2); CARBON DIOXIDE LEVEL 27 MEQ/L (21-32); CHLORIDE LEVEL 109 MEQ/L (98-107); CHOLESTEROL LEVEL 106 MG/DL (<200); CHOLESTEROL RISK RATIO 2.717 (<5); CPK CREATINE PHOSPHOKINASE 93 U/L (39-308); CREATININE FOR GFR 0.93 MG/DL (0.70-1.30); FREE T4 0.95 NG/DL (0.76-1.46); GLOMERULAR FILTRATION RATE > 60.0 (>49); GLUCOSE, FASTING 110 MG/DL (80-110); HDL CHOLESTEROL 39 MG/DL (>40); LDL CHOLESTEROL 24.6 MG/DL (<100); NON-HDL-C 67 MG/DL; POTASSIUM SERUM 3.9 MEQ/L (3.5-5.1); SODIUM LEVEL 143 MEQ/L (136-145); TOTAL PROTEIN 7.6 GM/DL (6.4-8.2); TRIGLYCERIDES LEVEL 212 MG/DL (<150)
[2017-05-16 12:55] LABS: FREE T3 3.2 PG/ML (2.2-4.0)
== END ==
LOC: M LAB REF 11:07
DX: E78.2 Mixed hyperlipidemia (principal)

== ENCOUNTER → 2017-05-24 | Outpatient (CLI) | payer OTHER, MEDICARE | LOC: M PAIN 15:00 | DX: M12.88 Other specific arthropathies, not elsewhere classified, other specified site (principal); M12.50 Traumatic arthropathy, unspecified site; I10 Essential (primary) hypertension; E78.5 Hyperlipidemia, unspecified; E11.9 Type 2 diabetes mellitus without complications; Z79.84 Long term (current) use of oral hypoglycemic drugs; Z79.899 Other long term (current) drug therapy; Z79.891 Long term (current) use of opiate analgesic; Z88.0 Allergy status to penicillin; Z88.8 Allergy status to other drugs, medicaments and biological substances | CPT/HCPCS: G0463 ==

== ENCOUNTER 2017-06-09 09:05 | Outpatient (RCR) | payer OTHER | END 2017-07-06 | LOC: M CR 09:05 | DX: Z98.61 Coronary angioplasty status (principal); I25.10 Atherosclerotic heart disease of native coronary artery without angina pectoris | CPT/HCPCS: 93798 ==

== ENCOUNTER → 2017-06-24 | Outpatient (REF) | payer OTHER ==
[2017-06-24 11:17] LABS: ALBUMIN 3.6 GM/DL (3.2-5.2); ALBUMIN/GLOBULIN RATIO 0.97 (1.00-1.93); ALKALINE PHOSPHATASE 89 U/L (45-117); ALT/SGPT 42 U/L (12-78); AST/SGOT 28 U/L (7-37); BILIRUBIN,DIRECT 0.1 MG/DL (0.0-0.2); BILIRUBIN,TOTAL 0.5 MG/DL (0.2-1.0); CHOLESTEROL LEVEL 144 MG/DL (<200); CPK CREATINE PHOSPHOKINASE 81 U/L (39-308); HDL CHOLESTEROL 40 MG/DL (>40); LDL CHOLESTEROL 71.2 MG/DL (<100); NON-HDL-C 104 MG/DL; TOTAL PROTEIN 7.3 GM/DL (6.4-8.2); TRIGLYCERIDES LEVEL 164 MG/DL (<150)
[2017-06-24 11:55] LABS: TOTAL 25(OH) VITAMIN D 49.9 NG/ML (30.0-100.0)
== END ==
LOC: M LAB REF 10:32
DX: I25.10 Atherosclerotic heart disease of native coronary artery without angina pectoris (principal); E55.9 Vitamin D deficiency, unspecified

== ENCOUNTER → 2017-06-27 | Outpatient (CLI) | payer OTHER, MEDICARE ==
[2017-06-27 20:03] LABS: PROSTATIC SPECIFIC AG MONITOR < 0.01 NG/ML (< 4.0)
== END ==
LOC: M SMT 13:40
DX: C61 Malignant neoplasm of prostate (principal)

== ENCOUNTER → 2017-07-20 | Outpatient (CLI) | payer OTHER, MEDICARE | LOC: M PAIN 14:00 | DX: M12.88 Other specific arthropathies, not elsewhere classified, other specified site (principal); M12.50 Traumatic arthropathy, unspecified site; G89.21 Chronic pain due to trauma; M54.2 Cervicalgia; E11.40 Type 2 diabetes mellitus with diabetic neuropathy, unspecified; I10 Essential (primary) hypertension; G47.30 Sleep apnea, unspecified; E78.5 Hyperlipidemia, unspecified; F32.9 Major depressive disorder, single episode, unspecified; K21.9 Gastro-esophageal reflux disease without esophagitis; E55.9 Vitamin D deficiency, unspecified; D68.61 Antiphospholipid syndrome; Z79.01 Long term (current) use of anticoagulants; Z79.84 Long term (current) use of oral hypoglycemic drugs; Z79.899 Other long term (current) drug therapy; Z88.1 Allergy status to other antibiotic agents; Z88.8 Allergy status to other drugs, medicaments and biological substances; Z95.5 Presence of coronary angioplasty implant and graft; Z90.79 Acquired absence of other genital organ(s) | CPT/HCPCS: G0463 ==

== ENCOUNTER → 2017-08-16 | Outpatient (CLI) | payer OTHER, MEDICARE | LOC: M PAIN 10:30 | DX: M12.50 Traumatic arthropathy, unspecified site (principal); M12.88 Other specific arthropathies, not elsewhere classified, other specified site; G89.21 Chronic pain due to trauma; I10 Essential (primary) hypertension; G47.30 Sleep apnea, unspecified; E78.5 Hyperlipidemia, unspecified; E11.40 Type 2 diabetes mellitus with diabetic neuropathy, unspecified; F32.9 Major depressive disorder, single episode, unspecified; K21.9 Gastro-esophageal reflux disease without esophagitis; E55.9 Vitamin D deficiency, unspecified; D68.61 Antiphospholipid syndrome; Z79.01 Long term (current) use of anticoagulants; Z79.899 Other long term (current) drug therapy; Z88.1 Allergy status to other antibiotic agents; Z88.8 Allergy status to other drugs, medicaments and biological substances; Z95.5 Presence of coronary angioplasty implant and graft; Z86.79 Personal history of other diseases of the circulatory system | CPT/HCPCS: G0463 ==

== ENCOUNTER → 2017-09-13 | Outpatient (CLI) | payer OTHER, MEDICARE | LOC: M SMT 10:24 | DX: I11.9 Hypertensive heart disease without heart failure (principal) ==

== ENCOUNTER → 2017-09-13 | Outpatient (CLI) | payer OTHER, MEDICARE ==
[2017-09-13 13:28] LABS: ANION GAP 8 MEQ/L (8-16); BLOOD UREA NITROGEN 46 MG/DL (7-18); CALCIUM LEVEL 9.2 MG/DL (8.8-10.2); CARBON DIOXIDE LEVEL 25 MEQ/L (21-32); CHLORIDE LEVEL 111 MEQ/L (98-107); CREATININE FOR GFR 1.47 MG/DL (0.70-1.30); GLOMERULAR FILTRATION RATE 51.7 (>49); GLUCOSE, FASTING 131 MG/DL (70-100); POTASSIUM SERUM 3.7 MEQ/L (3.5-5.1); SODIUM LEVEL 144 MEQ/L (136-145)
== END ==
LOC: M SMT 10:27
DX: I11.9 Hypertensive heart disease without heart failure (principal)
CPT/HCPCS: 80048

== ENCOUNTER → 2017-09-30 | Outpatient (CLI) | payer OTHER, MEDICARE ==
[2017-09-30 17:11] LABS: ANION GAP 7 MEQ/L (8-16); BLOOD UREA NITROGEN 29 MG/DL (7-18); CALCIUM LEVEL 9.4 MG/DL (8.8-10.2); CARBON DIOXIDE LEVEL 29 MEQ/L (21-32); CHLORIDE LEVEL 108 MEQ/L (98-107); CREATININE FOR GFR 1.09 MG/DL (0.70-1.30); GLOMERULAR FILTRATION RATE > 60.0 (>49); GLUCOSE, FASTING 110 MG/DL (70-100); POTASSIUM SERUM 3.5 MEQ/L (3.5-5.1); SODIUM LEVEL 144 MEQ/L (136-145)
== END ==
LOC: M LRY 09:46
DX: I11.9 Hypertensive heart disease without heart failure (principal)

== ENCOUNTER → 2017-10-17 | Outpatient (CLI) | payer OTHER, MEDICARE ==
[~2017-10-17] MED LIST changes: -/DULO30CA PO; -/LANS30GR PO; -/TAMS4CA OR; -ACET50TA PO; -ACET650S3 PO; -ALBU17IN INH; -ALBU17IN2 INH; -AMBI5TAB; -AMLO5TAB; -AMLO5TAB PO; -AMLO5TAB2 PO; -ASCO500T PO; -ASPI1TAB PO; -ASPI81TA63 PO; -AVAP150T; -BENI1TAB PO; -BENI20TA5 PO; -BENI40TA26 PO; +BUPIVACAINE HCL 0.25% 10 ML VIAL As Ordered; +BUPIVACAINE HCL 0.25% 30 ML VIAL As Ordered; -BUPR15TA; -CARV25TA PO; -CEPACOL PO; -CHLO125TA PO; -CHLO25TA3 PO; -CIAL20TA; -CIPR100T4 PO; -COLA100C5 PO; -COZA100T; -COZA100T OR; -CRES20TA OR; -CRES20TA PO; -CRES40TA PO; -DITR5TAB PO; -DRIS50002 PO; -FERR1TAB8 PO; -FLOM5CAP PO; -FLON0.05; -FLON0.054; -FLON1SPR; -FLUT11IN INH; -FLUTISP; -GABA300T; -GABA600T PO; -GABA600T3 OR; -GLUC1000 PO; -GLUC500T PO; -HYDR-3719 PO; -HYDR200T3 PO; -HYDR25TA6; -HYDR25TA6 OR; -HYPROMELLOSE OU; -LACT20EL PO; -LOVA1CAP17 PO; -LOVAZA PO; -LOVE0.8I SC; -LOVE1INJ SC; -LYRI150C OR; -METF500T13 PO; -MIRA0.753 PO; -Mirapex PO; -NATUSOL OU; -NITR0.3S SL; -NITR3TA SL; -OLME20TA2 PO; -OXYB5TAB PO; -OXYC-517 PO; -OXYC1TAB23 PO; -OXYC30TA4 PO; -OXYC5CAP28 PO; -PERC10TA26 PO; -PERC7.5T12 PO; -PLAV1TAB2 PO; -PLAV75TA2 PO; -POTA1TAB14 PO; -POTA20TA OR; -PREV1CAP PO; -PROAAER10 INH; -PROT1TAB2 PO; -Pain Cream TOP; -QUAR INH; -QVAR1AER2 INH; -REFR0.5D8 OU; -REFR1DRO6 OU; -REQU2TAB3 OR; -RYZOLT PO; -SERT-138 PO; -SITA50TAB PO; -TAMS0.4C2 PO; -THERGRAN PO; -TIZA4TAB OR; -TOPA100T12 PO; -TOPA1TAB PO; -TOPI50TA9 PO; -TOPR100T; -TOPR50TA; -TRAM50TA2 OR; +TRIAMCINOLONE ACETONIDE SUSP 40 MG/ML VIAL (J3301) As Ordered; -TRIL135C6 PO; -Trilipix PO; -VICO10TA11 PO; -VICO5TA PO; -VICO5TAB OR; -VITAMIN D50000 UNT PO; -VOLT1GEL2 TD; -VYTO10TA5; -Ventolin INH; -XANA0.5T PO; -XARE20TA PO; -ZETI10TA30 PO; -ZOLO100T PO; -ZOLO50TA OR; -[UNRECOGNIZED DRUG - CODE] OU; -[UNRECOGNIZED DRUG - OTHER]; +diazePAM 5 MG TAB As Ordered; +oxyCODONE 5MG TAB As Ordered; -plaquenil PO; -tylenol#3 PO
== END ==
LOC: M PAIN 14:15
DX: G89.29 Other chronic pain (principal); M79.1 Myalgia; I10 Essential (primary) hypertension; G47.30 Sleep apnea, unspecified; I25.10 Atherosclerotic heart disease of native coronary artery without angina pectoris; E78.5 Hyperlipidemia, unspecified; K57.30 Diverticulosis of large intestine without perforation or abscess without bleeding; N52.9 Male erectile dysfunction, unspecified; E11.40 Type 2 diabetes mellitus with diabetic neuropathy, unspecified; F32.9 Major depressive disorder, single episode, unspecified; N40.0 Benign prostatic hyperplasia without lower urinary tract symptoms; K21.9 Gastro-esophageal reflux disease without esophagitis; E55.9 Vitamin D deficiency, unspecified; D68.61 Antiphospholipid syndrome; R10.13 Epigastric pain; Z79.82 Long term (current) use of aspirin; Z79.891 Long term (current) use of opiate analgesic; Z79.899 Other long term (current) drug therapy; Z88.1 Allergy status to other antibiotic agents; Z88.8 Allergy status to other drugs, medicaments and biological substances; Z79.01 Long term (current) use of anticoagulants
CPT/HCPCS: J3301

== ENCOUNTER → 2017-11-08 | Outpatient (CLI) | payer OTHER | LOC: M PAIN 10:15 | DX: M54.2 Cervicalgia (principal); M79.1 Myalgia; I10 Essential (primary) hypertension; G47.30 Sleep apnea, unspecified; E78.5 Hyperlipidemia, unspecified; E11.40 Type 2 diabetes mellitus with diabetic neuropathy, unspecified; F32.9 Major depressive disorder, single episode, unspecified; K21.9 Gastro-esophageal reflux disease without esophagitis; E55.9 Vitamin D deficiency, unspecified; D68.312 Antiphospholipid antibody with hemorrhagic disorder; Z72.0 Tobacco use; Z79.01 Long term (current) use of anticoagulants; Z79.899 Other long term (current) drug therapy; Z88.1 Allergy status to other antibiotic agents; Z88.8 Allergy status to other drugs, medicaments and biological substances; Z86.79 Personal history of other diseases of the circulatory system | CPT/HCPCS: G0463 ==

== ENCOUNTER → 2017-12-14 | Outpatient (CLI) | payer OTHER ==
[2017-12-14 12:41] LABS: ANION GAP 7 MEQ/L (8-16); BLOOD UREA NITROGEN 29 MG/DL (7-18); CALCIUM LEVEL 8.7 MG/DL (8.8-10.2); CARBON DIOXIDE LEVEL 28 MEQ/L (21-32); CHLORIDE LEVEL 111 MEQ/L (98-107); CREATININE FOR GFR 0.97 MG/DL (0.70-1.30); GLOMERULAR FILTRATION RATE > 60.0 (>49); GLUCOSE, FASTING 179 MG/DL (70-100); POTASSIUM SERUM 3.6 MEQ/L (3.5-5.1); SODIUM LEVEL 146 MEQ/L (136-145)
== END ==
LOC: M LRY 09:39
DX: I10 Essential (primary) hypertension (principal)
CPT/HCPCS: 80048

== ENCOUNTER → 2017-12-20 | Outpatient (CLI) | payer OTHER | LOC: M PAIN 10:00 | DX: M12.88 Other specific arthropathies, not elsewhere classified, other specified site (principal); M12.50 Traumatic arthropathy, unspecified site; I10 Essential (primary) hypertension; G47.30 Sleep apnea, unspecified; I25.10 Atherosclerotic heart disease of native coronary artery without angina pectoris; E78.5 Hyperlipidemia, unspecified; N52.9 Male erectile dysfunction, unspecified; E11.40 Type 2 diabetes mellitus with diabetic neuropathy, unspecified; F32.9 Major depressive disorder, single episode, unspecified; N40.0 Benign prostatic hyperplasia without lower urinary tract symptoms; K21.9 Gastro-esophageal reflux disease without esophagitis; F17.210 Nicotine dependence, cigarettes, uncomplicated; E55.9 Vitamin D deficiency, unspecified; D68.61 Antiphospholipid syndrome; K57.90 Diverticulosis of intestine, part unspecified, without perforation or abscess without bleeding; Z95.5 Presence of coronary angioplasty implant and graft; Z98.1 Arthrodesis status; Z88.1 Allergy status to other antibiotic agents; Z88.8 Allergy status to other drugs, medicaments and biological substances; Z79.02 Long term (current) use of antithrombotics/antiplatelets; Z79.01 Long term (current) use of anticoagulants; Z79.899 Other long term (current) drug therapy | CPT/HCPCS: G0463 ==

== ENCOUNTER → 2017-12-29 | Outpatient (CLI) | payer OTHER ==
[2017-12-29 18:02] LABS: PROSTATIC SPECIFIC AG MONITOR < 0.01 NG/ML (< 4.0)
== END ==
LOC: M SMT 13:51
DX: C61 Malignant neoplasm of prostate (principal)
CPT/HCPCS: 84153

== ENCOUNTER → 2018-01-24 | Outpatient (CLI) | payer OTHER ==
[~2018-01-24] MED LIST changes: -BUPIVACAINE HCL 0.25% 10 ML VIAL As Ordered; +ISOVUE-M 300 61% 15ML VIAL (Q9967) As Ordered; +LIDOCAINE 1% SDV INJ 30 ML VIAL As Ordered
== END ==
LOC: M PAIN 14:00
DX: M53.3 Sacrococcygeal disorders, not elsewhere classified (principal); I10 Essential (primary) hypertension; G47.30 Sleep apnea, unspecified; I25.10 Atherosclerotic heart disease of native coronary artery without angina pectoris; E78.5 Hyperlipidemia, unspecified; N52.9 Male erectile dysfunction, unspecified; E11.40 Type 2 diabetes mellitus with diabetic neuropathy, unspecified; F32.9 Major depressive disorder, single episode, unspecified; N40.0 Benign prostatic hyperplasia without lower urinary tract symptoms; K21.9 Gastro-esophageal reflux disease without esophagitis; E55.9 Vitamin D deficiency, unspecified; D68.61 Antiphospholipid syndrome; Z95.5 Presence of coronary angioplasty implant and graft; F17.210 Nicotine dependence, cigarettes, uncomplicated; Z79.02 Long term (current) use of antithrombotics/antiplatelets; Z79.84 Long term (current) use of oral hypoglycemic drugs; Z79.01 Long term (current) use of anticoagulants; Z79.899 Other long term (current) drug therapy; Z88.1 Allergy status to other antibiotic agents; Z88.8 Allergy status to other drugs, medicaments and biological substances
CPT/HCPCS: J3301

== ENCOUNTER → 2018-03-13 | Outpatient (CLI) | payer OTHER ==
[2018-03-13 11:57] LABS: HEMATOCRIT 48.1 % (42.0-52.0); HEMOGLOBIN 16.2 g/dl (13.5-17.5); MEAN CORPUSCULAR HEMOGLOBIN 29.7 pg (27.0-33.0); MEAN CORPUSCULAR HGB CONC 33.7 g/dl (32.0-36.5); MEAN CORPUSCULAR VOLUME 88.3 fl (80.0-96.0); PLATELET COUNT, AUTOMATED 219 10^3/uL (150-450); RED BLOOD COUNT 5.45 10^6/uL (4.30-6.10); RED CELL DISTRIBUTION WIDTH 13.3 % (11.5-14.5)
[2018-03-13 12:06] LABS: INR 2.05; PROTHROMBIN TIME 23.5 SECONDS (12.1-14.4)
[2018-03-13 12:07] LABS: PARTIAL THROMBOPLASTIN TIME 41.4 SECONDS (25.4-37.6)
[2018-03-13 12:14] LABS: ALBUMIN 3.7 GM/DL (3.2-5.2); ALBUMIN/GLOBULIN RATIO 0.97 (1.00-1.93); ALKALINE PHOSPHATASE 75 U/L (45-117); ALT/SGPT 38 U/L (12-78); AST/SGOT 25 U/L (7-37); BILIRUBIN,DIRECT 0.1 MG/DL (0.0-0.2); BILIRUBIN,TOTAL 0.5 MG/DL (0.2-1.0); CHOLESTEROL LEVEL 116 MG/DL (<200); CHOLESTEROL RISK RATIO 2.367 (<5); CPK CREATINE PHOSPHOKINASE 76 U/L (39-308); HDL CHOLESTEROL 49 MG/DL (>40); LDL CHOLESTEROL 48 MG/DL (<100); NON-HDL-C 67 MG/DL; TOTAL PROTEIN 7.5 GM/DL (6.4-8.2); TRIGLYCERIDES LEVEL 97 MG/DL (<150)
[2018-03-13 12:37] LABS: MALB URINE SIEMENS 22.4 MG/L; MAU/CREAT RATIO 7.9 MCG/MG (0.0-30.0)
[2018-03-13 12:46] LABS: CONTROL LINE HPYORI INT CTR LINE PRESENT; H PYLORI QUALITATIVE IgG NEGATIVE (NEGATIVE)
== END ==
LOC: M LRY 08:53
DX: E11.40 Type 2 diabetes mellitus with diabetic neuropathy, unspecified (principal); R04.0 Epistaxis; R12 Heartburn; E78.2 Mixed hyperlipidemia; M12.88 Other specific arthropathies, not elsewhere classified, other specified site; M12.58 Traumatic arthropathy, other specified site; I10 Essential (primary) hypertension; G47.30 Sleep apnea, unspecified; E78.5 Hyperlipidemia, unspecified; F32.9 Major depressive disorder, single episode, unspecified; E55.9 Vitamin D deficiency, unspecified; D68.61 Antiphospholipid syndrome; F17.290 Nicotine dependence, other tobacco product, uncomplicated; Z79.01 Long term (current) use of anticoagulants; Z79.899 Other long term (current) drug therapy; Z88.1 Allergy status to other antibiotic agents; Z88.8 Allergy status to other drugs, medicaments and biological substances; Z86.79 Personal history of other diseases of the circulatory system
CPT/HCPCS: 82550

== ENCOUNTER → 2018-03-13 | Outpatient (CLI) | payer OTHER | LOC: M PAIN 09:45 | DX: M12.88 Other specific arthropathies, not elsewhere classified, other specified site (principal); M12.58 Traumatic arthropathy, other specified site; I10 Essential (primary) hypertension; E11.40 Type 2 diabetes mellitus with diabetic neuropathy, unspecified; G47.30 Sleep apnea, unspecified; E78.5 Hyperlipidemia, unspecified; F32.9 Major depressive disorder, single episode, unspecified; E55.9 Vitamin D deficiency, unspecified; D68.61 Antiphospholipid syndrome; F17.290 Nicotine dependence, other tobacco product, uncomplicated; Z79.01 Long term (current) use of anticoagulants; Z79.899 Other long term (current) drug therapy; Z88.1 Allergy status to other antibiotic agents; Z88.8 Allergy status to other drugs, medicaments and biological substances; Z86.79 Personal history of other diseases of the circulatory system ==

== ENCOUNTER → 2018-05-12 | Outpatient (CLI) | payer OTHER ==
[~2018-05-12] MED LIST changes: +/DULO30CA PO; +/LANS30GR PO; +/TAMS4CA OR; +ACET50TA PO; +ACET650S3 PO; +ALBU17IN INH; +ALBU17IN2 INH; +AMBI5TAB; +AMLO5TAB; +AMLO5TAB PO; +AMLO5TAB6 PO; +ASCO500T PO; +ASPI1TAB PO; +ASPI81TA63 PO; +AVAP150T; +BENI1TAB3 PO; +BENI20TA5 PO; +BENI40TA26 PO; -BUPIVACAINE HCL 0.25% 30 ML VIAL As Ordered; +BUPR15TA; +CARV25TA PO; +CEPACOL PO; +CHLO125TA PO; +CHLO25TA3 PO; +CIAL20TA; +CIPR100T4 PO; +COLA100C5 PO; +COZA100T; +COZA100T OR; +CRES20TA OR; +CRES20TA PO; +CRES40TA PO; +DITR5TAB PO; +DRIS50003 PO; +FERR1TAB8 PO; +FLOM0.4C39 PO; +FLON0.05; +FLON0.054; +FLON1SPR; +FLUT11IN INH; +FLUTISP; +GABA300T; +GABA600T3 OR; +GABA600T4 PO; +GLUC1000 PO; +GLUC500T PO; +HYDR-3719 PO; +HYDR200T3 PO; +HYDR25TA6; +HYDR25TA6 OR; +HYPROMELLOSE OU; -ISOVUE-M 300 61% 15ML VIAL (Q9967) As Ordered; +LACT20EL PO; -LIDOCAINE 1% SDV INJ 30 ML VIAL As Ordered; +LOVA1CAP17 PO; +LOVAZA PO; +LOVE0.8I SC; +LOVE1INJ SC; +LYRI150C OR; +METF500T13 PO; +MIRA0.753 PO; +Mirapex PO; +NATUSOL OU; +NITR0.3S SL; +OLME20TA2 PO; +OXYB5TAB PO; +OXYC-517 PO; +OXYC1TAB23 PO; +OXYC30TA4 PO; +OXYC5CAP28 PO; +PERC10TA26 PO; +PERC7.5T12 PO; +PLAV1TAB2 PO; +PLAV75TA2 PO; +POTA1TAB14 PO; +POTA20TA OR; +PREV1CAP PO; +PROAAER10 INH; +PROT1TAB2 PO; +Pain Cream TOP; +QUAR INH; +QVAR80AE10 INH; +REFR0.5D8 OU; +REFR1DRO6 OU; +REQU2TAB3 OR; +RYZOLT PO; +SERT-138 PO; +SITA50TAB PO; +TAMS0.4C2 PO; +THERGRAN PO; +TIZA4TAB OR; +TOPA100T12 PO; +TOPA1TAB PO; +TOPI50TA9 PO; +TOPR100T; +TOPR50TA; +TRAM50TA2 OR; -TRIAMCINOLONE ACETONIDE SUSP 40 MG/ML VIAL (J3301) As Ordered; +TRIL135C6 PO; +Trilipix PO; +VICO10TA11 PO; +VICO5TA PO; +VICO5TAB OR; +VITAMIN D50000 UNT PO; +VOLT1GEL2 TD; +VYTO10TA5; +Ventolin INH; +XANA0.5T PO; +XARE20TA PO; +ZETI10TA30 PO; +ZOLO100T PO; +ZOLO50TA OR; +[UNRECOGNIZED DRUG - CODE] OU; +[UNRECOGNIZED DRUG - OTHER]; -diazePAM 5 MG TAB As Ordered; -oxyCODONE 5MG TAB As Ordered; +plaquenil PO; +tylenol#3 PO
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
== END ==
LOC: M PAIN 09:30
PROVIDERS: ATTEND Nurse Practitioner Family
DX: M12.88 Other specific arthropathies, not elsewhere classified, other specified site (principal); M12.50 Traumatic arthropathy, unspecified site; G89.29 Other chronic pain; I10 Essential (primary) hypertension; E78.5 Hyperlipidemia, unspecified; E11.40 Type 2 diabetes mellitus with diabetic neuropathy, unspecified; F32.9 Major depressive disorder, single episode, unspecified; K21.9 Gastro-esophageal reflux disease without esophagitis; E55.9 Vitamin D deficiency, unspecified; D68.61 Antiphospholipid syndrome; G47.30 Sleep apnea, unspecified; F17.290 Nicotine dependence, other tobacco product, uncomplicated; Z79.01 Long term (current) use of anticoagulants; Z79.899 Other long term (current) drug therapy; Z88.1 Allergy status to other antibiotic agents; Z88.8 Allergy status to other drugs, medicaments and biological substances; Z86.79 Personal history of other diseases of the circulatory system

== ENCOUNTER → 2018-09-22 | Outpatient (CLI) | payer OTHER ==
[~2018-09-22] MED LIST changes: -/DULO30CA PO; -/TAMS4CA OR; -ACET50TA PO; +AMLO-150; -ASPI1TAB PO; +ASPI81TA26 PO; +BYDU1INJ; +CARV6.25; -CRES20TA PO; +CRES20TA2 PO; +CYMB1CAP5 PO; +FLOM0.4C39 OR; +FLUT50SP12; -FLUTISP; +FOLI1TAB11 PO; +GABA800T4 PO; +LACT15SO PO; -LACT20EL PO; +MAPA500T17 PO; +METO-743; +METO-745; +QVAR40AE12 INH; -TOPR100T; -TOPR50TA; +VENTAER INH; +ZOLO50TA PO; +[UNRECOGNIZED DRUG - OTHER] OU
[2018-09-22 17:25] LABS: HEMATOCRIT 46.4 % (42.0-52.0); MEAN CORPUSCULAR HEMOGLOBIN 28.7 pg (27.0-33.0); MEAN CORPUSCULAR HGB CONC 32.3 g/dl (32.0-36.5); MEAN CORPUSCULAR VOLUME 88.7 fl (80.0-96.0); PLATELET COUNT, AUTOMATED 252 10^3/uL (150-450); RED BLOOD COUNT 5.23 10^6/uL (4.30-6.10); WHITE BLOOD COUNT 9.1 10^3/uL (4.0-10.0)
[2018-09-22 17:28] LABS: BLOOD UREA NITROGEN 22 MG/DL (7-18); CALCIUM LEVEL 9.1 MG/DL (8.8-10.2); CARBON DIOXIDE LEVEL 26 MEQ/L (21-32); CHLORIDE LEVEL 110 MEQ/L (98-107); CREATININE FOR GFR 0.94 MG/DL (0.70-1.30); GLOMERULAR FILTRATION RATE > 60.0 (>49); GLUCOSE, FASTING 142 MG/DL (70-100); POTASSIUM SERUM 4.1 MEQ/L (3.5-5.1); SODIUM LEVEL 141 MEQ/L (136-145)
== END ==
LOC: M SMT 13:56
PROVIDERS: ATTEND Physician Assistant
DX: Z01.810 Encounter for preprocedural cardiovascular examination (principal)

== ENCOUNTER 2018-09-29 10:23 | Day surgery (SDC) | payer OTHER ==
[~2018-09-29] VITALS: Ht 172.7 cm; Wt 96.2 kg
[~2018-09-29 10:23] MED LIST changes: +LIDOCAINE 1% MDV 20ML VIAL SQ PRN; +LR 1,000 ML IV SCH
[2018-09-29] MEDS ORDERED: PROPOFOL 200 MG/20 ML VIAL As Ordered ONE (13:37)
[2018-09-29] MEDS ORDERED: dexameTHASONE 4 MG/ML 1ML VIAL (J1100) As Ordered ONE ×2 (13:37→13:45)
[2018-09-29] MEDS ORDERED: LIDOCAINE 2% INJ 100 MG/5 ML SDV (FOR ANES.) As Ordered ONE (13:37)
[2018-09-29] MEDS ORDERED: ONDANSETRON 4MG/2ML VIAL (J2405) As Ordered ONE (13:37)
[2018-09-29] MEDS ORDERED: MIDAZOLAM INJ 2 MG/2 ML VIAL (J2250) As Ordered ONE (13:38)
[2018-09-29] MEDS ORDERED: KETOROLAC 60 MG/2 ML VIAL (J1885) As Ordered ONE (13:45)
[2018-09-29] MEDS ORDERED: fentaNYL 100 MCG/2 ML INJECTION (J3010) As Ordered ONE (13:45)
[2018-09-29] MEDS ORDERED: ROPIvacaine 0.5% 30 ML INJECTION (J2795 PER 1MG) As Ordered ONE (14:47)
[2018-09-29] MEDS ORDERED: TRIAMCINOLONE ACETONIDE SUSP 40 MG/ML VIAL (J3301) As Ordered ONE (15:20)
[2018-09-29] MEDS: PERCOCET 5MG/325MG TAB PO PRN ×2 (16:24→16:59)
[2018-09-29] MEDS ORDERED: MEPERIDINE INJ 25 MG/ML VIAL (J2175) IV PRN (16:30)
[2018-09-29] MEDS ORDERED: ACETAMINOPH W/CODEINE #3 TAB UD PO PRN ×2 (16:30)
[2018-09-29] MEDS ORDERED: ONDANSETRON 4MG/2ML VIAL (J2405) IV PRN (16:30)
[2018-09-29] MEDS ORDERED: LR 1,000 ML IV SCH ×2 (16:30)
[2018-09-29] MEDS ORDERED: METOCLOPRAMIDE INJ 10MG/2ML VIAL (J2765) IV PRN (16:30)
[2018-09-29] MEDS ORDERED: fentaNYL 100 MCG/2 ML INJECTION (J3010) IV PRN (16:30)
[2018-09-29 20:20] VITALS: BP 122/65
--- NOTE | 2018-09-29 21:01 | RO ---
DATE OF PROCEDURE: 09/29/2018 PREOPERATIVE DIAGNOSIS: Right knee medial meniscus tear and arthritis. POSTOPERATIVE DIAGNOSIS: Right knee medial meniscus tear and arthritis with lateral meniscus tear. PROCEDURE: Right knee operative arthroscopy, partial medial and lateral meniscectomy. SURGEON: Hakeem Song MD TAKER DOWN: ANESTHESIA: General. ESTIMATED BLOOD LOSS: Minimal. COMPLICATIONS: None. INDICATIONS: 63-year-old gentleman with multiple medical problems who has had some persistent knee pain. He had an x-ray and MRI scan evidence of some arthritis but also had significant medial meniscus tear on MRI. He had considered knee replacement versus arthroscopy, and he wanted a trial of an arthroscopy to see if it would give him enough relief to avoid knee replacement. He was concerned because of his multiple medical issues undergoing a bigger procedure. He understood the nature of this, the risk of bleeding, infection, damage to nerves, vessels, persistent pain, blood clots, medical problems among others. DESCRIPTION OF PROCEDURE: The patient was taken to the operating room, placed in the supine position after general anesthesia was induced. The right lower extremity was prepped and draped in the usual sterile fashion. A time-out was performed. Tourniquet was inflated. I then created inferomedial and inferolateral portals per routine, identified the patellofemoral joint. He had grade 3 to 4 changes o the patellofemoral joint with some loose flaps that were removed. I then proceeded down both gutters. The medial compartment had a medial meniscus tear that was complex in nature. This was resected with a basket punch and a 4.2 shaver. He also had some large areas of full-thickness articular cartilage loss on the medial femoral condyle with loose flaps that were carefully smoothed off. I reprobed the medial meniscus, proceeded to the notch. The anterior cruciate ligament (ACL) was unremarkable. Lateral compartment was identified, and there was also some central lateral meniscus tearing, not as much arthritis laterally - I would say grade 2 changes. I resected the lateral meniscus tear. I then irrigated copiously, removed the instrumentation, closed the portals using #4-0 nylon suture, injected 30 mL of Naropin with 20 mg of Kenalog. Sterile dressing was applied. Tourniquet was deflated. He was taken to the recovery room in stable condition. There were no known complications. The plan will be routine postop.
== END 2018-09-29 20:20 | disposition home or self-care (01) ==
LOC: M SDC 10:23
PROVIDERS: ATTEND Orthopaedic Surgery
DX: S83.241A Other tear of medial meniscus, current injury, right knee, initial encounter (principal); M17.11 Unilateral primary osteoarthritis, right knee; E11.9 Type 2 diabetes mellitus without complications; I10 Essential (primary) hypertension; I25.10 Atherosclerotic heart disease of native coronary artery without angina pectoris; K21.9 Gastro-esophageal reflux disease without esophagitis; E78.5 Hyperlipidemia, unspecified; M10.9 Gout, unspecified; K44.9 Diaphragmatic hernia without obstruction or gangrene; Z79.4 Long term (current) use of insulin; Z79.02 Long term (current) use of antithrombotics/antiplatelets; Z88.8 Allergy status to other drugs, medicaments and biological substances; Z98.61 Coronary angioplasty status; Y92.9 Unspecified place or not applicable; Y93.9 Activity, unspecified
CPT/HCPCS: 29880; J0690; J1100; J1885; J2250; J2405; J2795; J3010; J3301

== ENCOUNTER → 2018-10-30 | Outpatient (CLI) | payer OTHER ==
[~2018-10-30] MED LIST changes: -LIDOCAINE 1% MDV 20ML VIAL SQ PRN; -LR 1,000 ML IV SCH
--- NOTE | 2018-10-31 09:22 | REP ---
MRI cervical spine without contrast: History: Neck pain. Comparison cervical spine CT study April 18, 2017. Comparison MRI study January 15, 2014. Technique: Sagittal and axial T1 and T2-weighted scans are acquired in the usual fashion with and without fat saturation. Sequences include spin echo, turbo spin-echo, and STIR imaging sequences. MRI findings: There is straightening of the normal cervical lordosis. The patient is status post ventral discectomy and fusion plating C3-C7 as before. There is a old healed vertically oriented fracture through the posterior aspect of the base of the dens as seen on CT imaging. There is an associated C2-3 spondylolisthesis unchanged. Craniocervical junction is unremarkable. Cervical cord is normal in coarse, caliber, and signal intensity. The CT study demonstrated post surgical fusion changes at the level of the facet joints in a few cervical levels as well. There are dorsal transpedicle screws and fixation wires emanating a magnetic field susceptibility artifact as well as ventral fusion hardware. Axial and sagittal images at C2-3 show mild diffuse disc bulging. No cord compression or neural foraminal encroachment. At C3-4, there is no evidence of cord compression. No central canal stenosis is seen. No cord compression is seen at C4-5. At C5-6, there is mild posterior ridging which may subtly indent the ventral margin of the cord. This appears to be unchanged from the CT. No central canal stenosis or cord compression is seen. At C6-7, there is no cord compressive lesion. At C7-T1, there is anterior discogenic spurring and some disc space narrowing is seen. Minimal disc bulging is seen. No cord compression is noted. Impression: Extensive surgical changes post cervical spine fusion ventrally and dorsally. A stable healed alignment of the C2 fracture. No cord compressive lesion is appreciated. Electronically Signed by Kevin Bolaños MD 10/31/2018 03:46 P
== END ==
LOC: M RAD 17:42
PROVIDERS: ATTEND Orthopaedic Surgery
DX: M54.2 Cervicalgia (principal); Z98.1 Arthrodesis status